=== PATIENT | male | born 2005 | race African-American/Black ===

== ENCOUNTER 2024-04-23 09:44 | Emergency (ER) | payer SELFPAY ==
--- NOTE | ~2024-04-23 | XR_ITS ---
EXAMINATION: XR chest 2V DATE: 04/23/2024 10:19 INDICATION: Chest pain TECHNIQUE: PA and lateral views of the chest were obtained. COMPARISON: None FINDINGS: Mild elevation the left hemidiaphragm. No airspace opacities, pulmonary edema, pleural effusion or pn eumothorax. The cardiomediastinal silhouette is normal. Visualized bones and soft tissues are unremar kable. IMPRESSION: 1. Mild elevation of the left hemidiaphragm. Otherwise normal chest radiograph. Reviewed, dictated and finalized at location A.
--- NOTE | 2024-04-23 09:47 | ECG_ITS ---
Test Date: 2024-04-23 09:53:15 Measurements Intervals [place] Rate: 71 P: -12 ID: [id number] QRS: 112 QRSD: 97 T: 150 QT: 369 QTc: 403 Interpretive Statements SINUS RHYTHM INCOMPLETE RIGHT BUNDLE BRANCH BLOCK LOW QRS VOLTAGE IN LIMB LEADS LEFT POSTERIOR FASCICULAR BLOCK BORDERLINE T WAVE ABNORMALITY- HIGH LATERAL LEADS ABNORMAL ECG No previous ECG available for comparison Electronically Signed On 04-23-2024 16:24:15 CDT by Garrett Lpóez D.O.
[2024-04-23 10:00] VITALS: BP 125/84; BP 125/93; PULSE 84; PULSE 90; RESP 14; RESP 16; TEMP 36.7; O2SAT 100
[2024-04-23 10:02] VITALS: BP 125/84; PULSE 72; RESP 14; O2SAT 100
--- NOTE | 2024-04-23 10:09 | ED.CHESTPAIN ---
HPI - Chest Pain General Chief Complaint: Chest Pain Stated Complaint: left chest pain Time Seen by Provider: 04/23/24 09:50 History of Present Illness HPI narrative: 19-year-old male no medical problems presents to the emergency room for evaluation of midsternal chest pain. States he woke up with the pain. Taking a deep breath and moving around exacerbates the pain. Denies any radiation. Denies any shortness of breath or difficulty breathing. Denies palpitations. States has had similar pain in the past, was told it was musculoskeletal. Related Data Home Medications Medication Instructions Recorded Confirmed No Home Medications 04/23/24 04/23/24 Allergies Allergy/AdvReac Type Severity Reaction Status Date / Time No Known Allergies Allergy Verified 04/23/24 09:45 Review of Systems Review of Systems: ROS unremarkable except for noted in HPI Exam Narrative: GENERAL: Well-appearing, well-nourished, no physical limitations, and in no acute distress. HEAD: Normocephalic, atraumatic. EYES: Conjunctivae normal, PERRLA and EOMI. CHEST: Clear to auscultation. No respiratory distress. No wheezes rales or rhonchi. No tenderness. HEART: Regular rate and rhythm. No murmur heard. Normal peripheral pulses. BACK: No CVA tenderness; No cervical/thoracic/lumbar tenderness, step-offs, bony abnormality; FROM EXTREMITIES: Normal range of motion. No edema. No clubbing or cyanosis SKIN: Warm, dry, no rash. No noted wounds NEURO: No focal deficits. Alert and oriented x3. MAEW. CN's II-XI intact bilaterally, normal gait PSYCH: Cooperative. Normal mood and affect. Course Vital Signs Vital signs: Vital Signs Temperature 36.7 C 04/23/24 10:00 Pulse Rate 90 04/23/24 10:00 Respiratory Rate 14 04/23/24 10:00 Blood Pressure 125/84 04/23/24 10:00 Pulse Oximetry 100 04/23/24 10:00 Oxygen Delivery Room Air 04/23/24 10:00 Temperature 36.7 C 04/23/24 10:00 Pulse Rate 90 04/23/24 10:00 Respiratory Rate 14 04/23/24 10:00 Blood Pressure 125/84 04/23/24 10:00 Pulse Oximetry 100 04/23/24 10:00 Oxygen Delivery Room Air 04/23/24 10:18 MDM - Chest Pain Lab Data 04/23/24 11:11 04/23/24 11:11 Labs: Lab Results 04/23/24 Range/Units 11:11 WBC 7.6 (4.5-10.0) K/mm3 RBC 5.38 (4.6-6.20) M/mm3 Hgb 16.7 (14.0-18.0) g/dL Hct 47.4 (42.0-52.0) % MCV 88.1 (80-100) fl MCH 31.0 (26-34) pg MCHC 35.2 (32-36) g/dl RDW 12.1 (11.5-14.5) % Plt Count 241 (150-375) k/mm3 MPV 8.3 (7.4-10.4) fl Immature Gran % (Auto) 0.3 (0-0.5) % Neut % (Auto) 62.1 (45.5-73.1) % Lymph % (Auto) 28.7 (18.3-44.2) % [place] % (Auto) 7.0 (2.6-8.5) % Eos % (Auto) 1.5 (0-4.4) % Baso % (Auto) 0.4 (0.2-1.2) % Lymph # (Auto) 2.17 (0.9-3.2) K/mm3 [place] # (Auto) 0.5 (0.1-0.6) K/mm3 Eos # (Auto) 0.1 (0-0.3) K/mm3 Baso # (Auto) 0.0 (0.0-0.1) K/mm3 Abs Immat Gran (auto) 0.02 (0.00-0.031) K/mm3 Absolute Neuts (auto) 4.7 (1.3-6.7) K/mm3 Absolute Nucleated RBC 0.000 (0.0-0.012) K/mm3 Nucleated RBC % 0.0 (0.0-0.2) % Sodium 139 (137-145) mmol/L Potassium 4.2 (3.4-5.0) mmol/L Chloride 100 (98-107) mmol/L Carbon Dioxide 31 H (22-30) mmol/L Anion Gap 8 (4-12) mmol/L BUN 12 (9-20) mg/dL Creatinine 1.10 (0.7-1.3) mg/dL Estim Creat Clear Calc 97 ml/min Estimated GFR > 60 (59 - ) Glucose 94 (65-110) mg/dL Calcium 9.1 (8.4-10.2) mg/dL Total Bilirubin 0.7 (0.2-1.3) mg/dL AST 31 (17-59) U/L ALT 33 (6-50) U/L Alkaline Phosphatase 86 (38-126) U/L Troponin I < 0.012 (0.000-0.034) ng/mL Total Protein 8.0 (6.3-8.2) g/dL Albumin 4.6 (3.5-5.1) g/dL Imaging Data Radiologist's impression: Impressions Chest X-Ray 04/23/24 10:44 IMPRESSION: 1. Mild elevation of the left hemidiaphragm. Otherwise normal chest radiograph. Discharge Plan Discharge Clinical Impres
[2024-04-23 11:20] LABS: Basophils Percent Auto 0.4 % (0.2-1.2); Eosinophils Absolute Auto 0.1 K/mm3 (0-0.3); Eosinophils Percent Auto 1.5 % (0-4.4); Hematocrit 47.4 % (42.0-52.0); Hemoglobin 16.7 g/dL (14.0-18.0); Immature Granulocyte Absolute 0.02 K/mm3 (0.00-0.031); Immature Granulocyte Percent A 0.3 % (0-0.5); Lymphocytes Absolute Auto 2.17 K/mm3 (0.9-3.2); Lymphocytes Percent Auto 28.7 % (18.3-44.2); Mean Corpuscular HGB Conc 35.2 g/dl (32-36); Mean Corpuscular Volume 88.1 fl (80-100); Mean Platelet Volume 8.3 fl (7.4-10.4); Monocytes Absolute Auto 0.5 K/mm3 (0.1-0.6); Neutrophils Absolute Auto 4.7 K/mm3 (1.3-6.7); Neutrophils Percent Auto 62.1 % (45.5-73.1); Platelet Count Result 241 k/mm3 (150-375); Red Blood Count 5.38 M/mm3 (4.6-6.20); Red Cell Distribution Width 12.1 % (11.5-14.5); White Blood Count 7.6 K/mm3 (4.5-10.0)
[2024-04-23 11:30] LABS: Alanine Aminotransferase 33 U/L (6-50); Albumin Level 4.6 g/dL (3.5-5.1); Alkaline Phosphatase 86 U/L (38-126); Anion Gap 8 mmol/L (4-12); Aspartate Amino Transferase 31 U/L (17-59); Bilirubin,Total 0.7 mg/dL (0.2-1.3); Blood Urea Nitrogen 12 mg/dL (9-20); Calcium 9.1 mg/dL (8.4-10.2); Carbon Dioxide 31 mmol/L (22-30); Chloride 100 mmol/L (98-107); Estimated CRCL calculation 97 ml/min; Estimated Glomerular Filt Rate > 60; Glucose 94 mg/dL (65-110); Potassium 4.2 mmol/L (3.4-5.0); Sodium 139 mmol/L (137-145)
[2024-04-23 11:42] LABS: Troponin I < 0.012 ng/mL (0.000-0.034)
[2024-04-23 11:46] VITALS: BP 143/80; PULSE 79; RESP 14; O2SAT 98
[2024-04-23 12:02] VITALS: PULSE 65; RESP 11; O2SAT 100
[2024-04-23 12:05] VITALS: BP 127/80; PULSE 74; RESP 16; O2SAT 98
== END 2024-04-23 12:05 | disposition home or self-care (01) ==
PROVIDERS: Emergency Provider Nurse Practitioner Family
DX: R07.89 Other chest pain (principal); I45.2 Bifascicular block
CPT/HCPCS: 36415; 71046; 80053; 84484; 85025; 93005; 99284

== ENCOUNTER 2024-12-06 15:53 | Emergency (ER) | payer OTHER, SELFPAY ==
--- NOTE | 2024-12-06 16:00 | ED.URI ---
HPI - URI/Sore Throat General Chief Complaint: Upper Respiratory Infection Stated Complaint: Sore Throat/Chills Time Seen by Provider: 12/06/24 15:56 Source: patient, RN notes reviewed and old records reviewed Mode of arrival: ambulatory Limitations: no limitations History of Present Illness HPI Narrative: Patient presents with complaints of flu-like symptoms for less than 24 hours. Symptoms include runny nose, sore throat, fever, body aches, headache, cough. He has been taking Mucinex for his symptoms with poor relief. He is not in any obvious distress Related Data Allergies Allergy/AdvReac Type Severity Reaction Status Date / Time No Known Allergies Allergy Verified 12/06/24 15:59 Review of Systems Review of Systems: All systems reviewed & are unremarkable except as noted in HPI and below Constitutional: Constitutional: Reports no additional constitutional complaints, Reports body ache(s), Reports chills, Reports fever(s), Reports headache(s) and Reports lethargy ENT: Reports system reviewed and no additional complaints, except as documented, Reports nasal congestion and Reports nasal discharge Cardiovascular: Cardiovascular: Reports no additional cardiovascular complaints Respiratory: Respiratory: Reports no additional respiratory complaints and Reports cough Gastrointestinal: Gastrointestinal: Reports no additional gastrointestinal complaints PMFSH Comments At the time of my signature, I reviewed and agree with the nursing past medical, surgical, social, and family history. There is no relevant family history pertinent to the patient complaint. Exam Const: General: cooperative, no acute distress, alert and awake Orientation/consciousness: oriented to person, oriented to place and oriented to time HENMT: Head: normal to inspection Mouth: Yes moist mucous membranes Resp: Effort & Inspection: normal respiratory effort and able to speak in complete sentences Auscultation: clear to auscultation bilaterally, no crackles, no rales, no rhonchi and no wheezes Cardio: Palpation: normal PMI Rate: regular rate Rhythm: regular rhythm Heart sounds: S1 normal heart sound present and S2 normal heart sound present Neuro: General: oriented to person, oriented to place and oriented to time Cranial nerves: Yes CN's II-XII intact bilaterally Psych: Appearance: grossly normal Thought process: Normal thought process present Insight: Good insight present (Psych) Judgement: Good judgement present (Psych) Course Course Level of Care: Express Care Visit Vital Signs Vital signs: Vital Signs Temperature 98.9 F 12/06/24 16:07 Pulse Rate 74 12/06/24 16:07 Respiratory Rate 16 12/06/24 16:07 Blood Pressure 147/93 H 12/06/24 16:07 Pulse Oximetry 100 12/06/24 16:07 Oxygen Delivery Room Air 12/06/24 16:07 Temperature 98.9 F 12/06/24 16:07 Pulse Rate 74 12/06/24 16:07 Respiratory Rate 16 12/06/24 16:07 Blood Pressure 147/93 H 12/06/24 16:07 Pulse Oximetry 100 12/06/24 16:07 Oxygen Delivery Room Air 12/06/24 16:07 Reviewed MDM - URI/Sore Throat MDM Narrative Medical decision making narrative: Negative flu, negative COVID, negative strep. Culture pending. Suspect that symptoms are actually due to influenza, symptoms present less than 24 hours. Start Tamiflu. Patient nontoxic appearing, stable for discharge home. Supportive care measures discussed. Discharge instructions reviewed with patient, as well as provided in writing per nursing staff. The instructions also include specific and strict return/GO TO THE ER as well as f/u information. All questions have been answered, and the patient deny any further questions with discharge and discharge plan. Some parts of this dictation were generated by voice recognition software and may contain typographical and/or grammatical inaccuracies. Differential Diagnosis Differential diagnosis: Likely upper respiratory infection, otitis media, viral infection, influenza and pharyngitis Medical Records Attestation: I reviewed the patient's medical records. Lab Data Attestation: I reviewed the patient's lab results. Labs: Lab Results 12/06/24 12/06/24 Range/Units 16:12 16:20 POC Influenza A Ag Negative (Negative) POC Influenza B Ag Negative (Negative) POC SARS CoV-2 Ag Negative (Negative) POC Grp A Strep Screen Negative (Negative) Discharge Plan Discharge Clinical Impression: Influenza, Elevated blood pressure reading Patient Disposition: Home, Self-Care Condition: Stable Instructions: Antibiotic Form, Influenza (ED) Additional Instructions: Take medications as prescribed. Follow with primary care provider. Emergency department for new or worse symptoms Patient Language: Malagasy Prescriptions: New oseltamivir [Tamiflu] 75 mg capsule 75 mg PO Q12H 5 Days Qty: 10 0RF Follow-up/Referrals: PHYSICIAN,PATTERN GRADER [Primary Care Provider] - Stand Alone Forms: Work/School Release IP Time of Disposition: 16:21
[2024-12-06 16:07] VITALS: BP 147/93; PULSE 74; RESP 16; TEMP 37.2; O2SAT 100
[2024-12-06 16:14] LABS: EDSTREPNEGPOS1 Negative (Negative)
[2024-12-06 16:22] LABS: EDCOVIDSCREEN Negative (Negative); EDINFLUASCREEN Negative (Negative); EDINFLUBSCREEN Negative (Negative)
== END 2024-12-06 16:25 | disposition home or self-care (01) ==
PROVIDERS: Emergency Provider Nurse Practitioner Family
DX: J11.1 Influenza due to unidentified influenza virus with other respiratory manifestations (principal); R03.0 Elevated blood-pressure reading, without diagnosis of hypertension; Z20.822 Contact with and (suspected) exposure to COVID-19
CPT/HCPCS: 87081; 87426; 87804; 87880; 99213; G0463

== ENCOUNTER 2025-02-19 10:15 | Emergency (ER) | payer OTHER, SELFPAY ==
--- NOTE | 2025-02-19 10:18 | ED_ITS ---
HPI - URI/Sore Throat General Chief Complaint: Ear Stated Complaint: headache/ear pain Time Seen by Provider: 02/19/25 10:17 Source: patient Mode of arrival: ambulatory Limitations: no limitations History of Present Illness HPI Narrative: Patient is a 20-year-old male who presents with left ear pain in left side headache. Patient seen by PCP 2 days ago for same symptoms and was told it was a malfunction with his CPAP machine. Patient also reports that he was told he needs is seen eye doctor as he may need glasses which are causing his headaches. Denies any fever, chills, nausea vomiting, diarrhea, vision loss. Related Data Allergies Allergy/AdvReac Type Severity Reaction Status Date / Time No Known Allergies Allergy Verified 02/19/25 10:24 Review of Systems Review of Systems: All systems reviewed & are unremarkable except as noted in HPI and below Constitutional: Constitutional: Denies chills, Denies fatigue, Denies fever(s), Reports headache(s), Denies malaise and Denies weakness Eyes: Eyes: Denies blurry vision, Denies itchy eyes and Denies loss of vision ENT: Reports otalgia, Reports headache(s), Denies nasal congestion, Denies sinus pain and Denies sore throat Cardiovascular: Cardiovascular: Denies chest pain, Denies irregular heart rhythm and Denies dyspnea Respiratory: Respiratory: Denies cough and Denies dyspnea Gastrointestinal: Gastrointestinal: Denies abdominal pain, Denies diarrhea, Denies nausea and Denies vomiting Musculoskeletal: Musculoskeletal: Denies back pain, Denies myalgias and Denies arthralgias Integumentary/Breasts: Skin/Breast: Denies pruritus and Denies rash Neurologic: Reports headache(s), Denies loss of vision and Denies weakness Psychiatric: Psychiatric: Reports no additional psychiatric complaints Endocrine: Endocrine: Denies fatigue Allergic/Immunologic: Allergic/Immunologic: Denies itchy eyes PMFSH Comments At time of signature, agree with nursing past medical, surgical, social and family history. There is no relevant family history pertinent to the presenting complaint. Exam Const: General: cooperative, healthy appearing, comfortable, no acute distress and well nourished Nutritional Appearance: well nourished Orientation/consciousness: patient oriented x3 Limitations: no limitations HENMT: Head: normal to inspection, normocephalic and atraumatic Ears: hearing grossly normal bilaterally, external ears normal, EAC's normal, no periauricular adenopathy and TM abnormal wth effusion serous on the left Face/Nose/Sinus: Normal external nose present, Normal nasal mucous membranes and turbinates present, normal facial exam, sinuses nontender and face symmetric Face and sinus: normal facial exam, sinuses nontender and face symmetric Mouth: Yes Normal oral and palatal mucosa present, Yes lip normal, Yes tongue normal, Yes Normal salivary glands and ducts present, Yes oropharynx normal and Yes moist mucous membranes Teeth and gingiva: dentition normal Throat: posterior oropharynx normal, tonsils normal and uvula midline Eyes: General: appearance normal, both eyes and all related structures Alignment and Position: alignment normal and position normal Periorbital: periorbital findings normal Eyelids: eyelids normal Pupils: Equal, round and reactive pupils present Neck: Neck: normal visual inspection, full ROM, no lymphadenopathy and supple Chest: Chest palpation & inspection: normal inspection of the chest and normal palpation of entire chest wall Resp: Effort & Inspection: normal respiratory effort and able to speak in complete sentences Auscultation: clear to auscultation bilaterally, no crackles, no rales, no rhonchi and no wheezes Cardio: Rate: regular rate Rhythm: regular rhythm Heart sounds: S1 normal heart sound present and S2 normal heart sound present GI: Inspection: normal to inspection Skin: General skin exam: normal color and no rashes or lesions noted Neuro: General: patient oriented x3 and moves all extremities Cranial nerves: Yes Equal, round and reactive pupils present Speech: normal speech Gait exam (Neuro): Normal gait present Extrem: General: normal to inspection, full ROM and no edema Psych: Appearance: grossly normal and well kempt Mental Status: mental status grossly normal Speech and movement: Normal speech and movement present Affect: normal affect Attitude: cooperative Thought process: Normal thought process present Course Course Emergency Course: Discharge instructions reviewed with patient, as well as provided in writing per nursing staff. The instructions also include specific and strict return/GO TO THE ER as well as f/u information. All questions have been answered, and the patient deny any further questions with discharge and discharge plan. Portions of this record may have been created with voice recognition software Level of Care: Express Care Visit Vital Signs Vital signs: Vital Signs Temperature 36.5 C 02/19/25 10:25 Pulse Rate 98 02/19/25 10:25 Respiratory Rate 20 05/16/25 10:25 Blood Pressure 139/80 02/19/25 10:25 Pulse Oximetry 99 02/19/25 10:25 Temperature 36.5 C 02/19/25 10:25 Pulse Rate 98 02/19/25 10:25 Respiratory Rate 20 02/19/25 10:25 Blood Pressure 139/80 02/19/25 10:25 Pulse Oximetry 99 02/19/25 10:25 Reviewed MDM - URI/Sore Throat MDM Narrative Medical decision making narrative: Pt well hydrated appearing, in no respiratory distress, hemodynamically stable. Recommend supportive care. The patient is stable at time of discharge the clinical impression was discussed and the patient was given the opportunity to ask questions, which were addressed as completely as possible given the information available at present. Anticipatory guidance and return to care precautions were discussed and the importance of primary care follow-up was stressed and encouraged. The patient voiced understanding of the plan, indications to return, and the need for follow-up. Exam findings show no acute concerns or changes Patient is appropriate for outpatient treatment and follow-up. Differential diagnosis considered: Stack virus, strep pharyngitis, allergic rhinitis, upper respiratory tract infection, sinusitis, rhinosinusitis, nasopharyngitis. viral pharyngitis, otitis media, otitis externa, otitis effusion, foreign body, cerumen impaction, viral syndrome, and influenza. Medical Records Attestation: I reviewed the patient's medical records. Discharge Plan Discharge Clinical Impression: Acute effusion of left ear Patient Disposition: Home Condition: Stable Instructions: Fluid In The Ear (Serous Otitis Media) (ED) Additional Instructions: Your symptoms are likely due to a viral illness, which is not treated with antibiotics. Viral symptoms can be present for up to a few weeks. -For pain, you may take: Tylenol 650-1000mg by mouth every 4-6 hours. Do not exceed 4000mg in 24 hours. Advil (Ibuprofen) 600 mg by mouth every 6 hours. Do not exceed 2400mg in 24 hours. 8 AM: Tylenol 11 AM: Ibuprofen 2 PM: Tylenol 5 PM: Ibuprofen 8 PM: Tylenol 11 PM: Ibuprofen 2 AM: Tylenol 5 AM: Ibuprofen -Antihistamine medication such as Benadryl/Zyrtec at night and Claritin/Monse during the day can help improve symptoms. -Use Flonase twice a day for 5 days then daily to help reduce the inflammation and dry up your sinuses. -You can also use Sudafed behind the pharmacy counter(12 or 24 hour). Be sure to drink plenty of water with these medications at least 8 ounces with every dose and it is important to drink 8 to 10 glasses of water per day. Water is a natural decongestant -Eat and drink things that are easy to swallow, like tea or soup, or popsicles. -Oral rinses such as: Salt water gargles and/or may use topical anesthetic (eg. Chloraseptic spray) or lozenges to relieve dryness or throat pain). -Frequent hand washing or hand hydraulic specialist is one of the best ways to prevent spread of infection. -Using a vaporizer or humidifier at night will also help thin secretions and help with coughing up phlegm. Call your Primary Care Doctor and make a follow-up appointment in 3 days. If your cough worsens, you develop a fever greater than 103, you develop shaking chills, a fast heartbeat, trouble breathing and/or feel you are are breathing much faster than usual, call your Primary Care Doctor or go to the ER. Patient Language: Hungarian Prescriptions: New fluticasone propionate [Flonase Allergy Relief] 50 mcg/actuation spray,suspension 1 spray intranasal DAILY Qty: 16 0RF Rx Instructions: administer into each nostril Follow-up/Referrals: Venkat,Paulette Hwang DO [Primary Care Provider] - 3 Days Stand Alone Forms: Work/School Release IP Time of Disposition: 10:58
[2025-02-19 10:25] VITALS: BP 139/80; PULSE 98; RESP 20; TEMP 36.5; O2SAT 99
== END 2025-02-19 11:04 | disposition home or self-care (01) ==
PROVIDERS: Emergency Provider Nurse Practitioner Family; PCP Family Medicine
DX: H65.02 Acute serous otitis media, left ear (principal); G47.30 Sleep apnea, unspecified
CPT/HCPCS: 99213; G0463

== ENCOUNTER 2025-03-15 06:29 | Emergency (ER) | payer OTHER, SELFPAY ==
--- OUTSIDE RECORDS SUMMARY | 2025-03-15 06:31 | XMS_ITS | Referral Summary ---
Author Organization [facility] Address [address] [place] [address] Care Team Providers Care Track And Field Coach Name Role Phone Paulette Robledo DO Primary Care Provider [phone]- [phone] Encounters Date Type Department Care Team Description 03/05/2025 3:08 AM CDT - 03/05/2025 4:55 AM CDT Emergency [facility] Emergency Department [address] [place] [address] Sunny Girard, Acute nonintractable headache, unspecified headache type (Primary Dx) Discharge Disposition: Discharge to home or self care 02/19/2025 Results Follow-Up [facility] Family Medicine at [facility] [address] [place] [address] Paulette Robledo, DO CBC with auto differential, Comprehensive metabolic panel, Hemoglobin A1c, Additional followed-up results: 8 02/19/2025 Telephone [facility] Family Medicine at [facility] [address] [place] [address] Paulette Robledo, DO Medical Question/Miscellaneou s 02/18/2025 Telephone [facility] [place] [address] [address] Alvarez Powers MD Orders Only 02/18/2025 8:30 AM CDT Office Visit [facility] [place] [address] [place] [address] Zoe Orozco NP ZOYA (obstructive sleep apnea) 02/17/2025 2:15 PM CDT Office Visit [facility] Family Medicine at [facility] [address] [facility] [address] [place] [address] Paulette Robledo DO Acute nonintractable headache, unspecified headache type (Primary Dx) 02/04/2025 8:00 AM CDT Office Visit [facility] Family Medicine at [facility] [address] [facility] [facility] [address] [place] [address] Paulette Robledo DO Annual physical exam (Primary Dx); ZOYA (obstructive sleep apnea); Class 2 obesity due to excess calories without serious comorbidity with body mass index (BMI) of 38.0 to 38.9 in adult; Screening for deficiency anemia; Encounter for screening for other digestive system disorders; Encounter for screening examination for impaired glucose regulation and diabetes mellitus; Encounter for lipid screening for cardiovascular disease; Screening for thyroid disorder; Screening for blood or protein in urine; Need for hepatitis C screening test; Need for hepatitis B screening test from Last 3 Months Allergies Active Allergy Reactions Criticality Noted Date Comments Tree Pollen-[place], Red Itching Low 06/11/2022 Medications ibuprofen (ADVIL,MOTRIN) 800 mg tabletIndications: Acute nonintractable headache, unspecified headache type Take 1 tablet (800 mg total) by mouth every 8 (eight) hours as needed for pain or headaches (pain) 90 tablet 2 Active Active Problems Problem Noted Date Diagnosed Date Class 2 obesity due to exces s calories without serious comorbidity with body mass index (BMI) of 38.0 to 38.9 in adult 02/04/2025 History of appendectomy 11/28/2016 Attention deficit disorder of adult with hyperac tivity 01/19/2014 Disorder of eustachian tube 09/07/2013 ZOYA (obstructive sleep apnea) 09/07/2013 Assessment & Plan (02/18/2025 9:06 AM CDT): The patient continue to wear CPAP 20 cm water pressure while sleeping. I did send an order to [facility] to show the patient variety of mask. The patient is aware that he does have a higher likelihood of heart attacks, strokes, irregular heartbeats and possible without wearing CPAP. Assessment & Plan (03/18/2023 11:48 AM CDT): The patient was diagnosed with obstructive sleep apnea at age 9. He is still snoring and having apneic episodes and is not on any CPAP/BiPAP therapy. I have recommended proceeding with a nocturnal polysomnogram with a split night protocol if necessary and no MSLT. He will follow up here in 3 months. Resolved Problems Problem Noted Date Diagnosed Date Resolved Date Disturbance in sleep behavior 09/07/2013 02/04/2025 Snoring 09/07/2013 02/04/2025 Nasal congestion 09/07/2013 02/04/2025 Immunizations Immunization Administration Dates Next Due Influenza, Unspecified 02/04/2025(Deferred: Carmen ent Refused) Social History Tobacco Use Types Packs/Day Years Used Date Smoking Tobacco: Never Smokeless Tobacco: Never Tobacco Cessation:Counseling Given: Not Answered Alcohol Use Standard Drinks/Week Comments Not Currently 0 (1 standard drink = 0.6 oz pur e alcohol) AUDIT-C Answer Date Recorded Q1: How often do you have a drink containing alcohol? Never 02/17/2025 Q2: How many drinks containi ng alcohol do you have on a typical day when you are drinking? Patient does not drink Q3: How often do you have si x or more drinks on one occasion? Never 02/17/2025 PHQ-2 Answer Date Recorded PHQ-2 Total Score 0 02/04/2025 Personal Safety Answer Date Recorded Have you ever been in or are you currently in a harmful physical or emotional relationship or is someone making you feel afraid or unsafe? 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 Gender Identity Not on file Sexual Orientation Not on file Last Filed Vital Signs Vital Sign Reading Time Taken Comments Blood Pressure 160/98 03/05/2025 4:05 AM CDT Pulse 98 03/05/2025 4:05 AM CDT Temperature 36.2 C (97.2 F) 03/05/2025 2:44 AM CDT Respiratory Rate 16 03/05/2025 4:05 AM CDT Oxygen Saturation 98% 03/05/2025 4:05 AM CDT Inhaled Oxygen Concentration - - Weight 124.7 kg (274 lb 14.6 oz) 03/05/2025 2:44 AM CDT Height 177.8 cm (5' 10) 02/18/2025 8:26 AM CDT Body Mass Index 39.45 02/18/2025 8:26 AM CDT Plan of Treatment Not on file Procedures Procedure Name Priority Date/Time Associated Diagnosis Comments CT HEAD WO CONTRAST ED 03/05/2025 4 :03 AM CDT THYROID FUNCTION CASCADE Routine 02/11/2025 1:10 PM CDT Annual physical exam Screening for thyroid disorder LIPID PANEL Routine 02/11/2025 1:10 PM CDT Annual physical exam Encounter for lipid screening for cardiovascular disease HEMOGLOBIN A1C Routine 02/11/2025 1:10 PM CDT Annual physical exam Encounter for screening examination for impaired glucose regulation and diabetes mellitus COMPREHENSIVE METABOLIC PANEL Routine 02/11/2025 1:10 PM CDT Annual physical exam Encounter for screening for other digestive system disorders CBC WITH AUTO DIFFERENTIAL Routine 02/11/2025 1:10 PM CDT Annual physical exam Screening for deficiency anemia URINE CULTURE Routine 02/11/2025 1:10 PM CDT HEPATITIS B CORE ANTIBODY, TOTAL Routine 02/11/2025 1:10 PM CDT Need for hepatitis B screening test HEPATITIS B SURFACE ANTIBODY (IMMUNE STATUS) Routine 02/11/2025 1:10 PM CDT Need for hepatitis B screening test HEPATITIS B SURFACE ANTIGEN Routine 02/11/2025 1:10 PM CDT Need for hepatitis B screening test HEPATITIS C ANTIBODY Routine 02/11/2025 1:10 PM CDT Need for hepatitis C screening test URINALYSIS AND REFLEX TO MICROSCOPIC AND CULTURE Routine 02/11/2025 1:10 PM CDT Annual physical exam Screening for blood or protein in urine from Last 3 Months Results * CT Head WO Contrast (03/05/2025 4:03 AM CDT) Anatomical Region Laterality Modality Head and Neck N/A Computed Tomogra phy 03/05/2025 4:39 AM CDT Narrative 03/05/2025 4:40 AM CDT EXAM DESCRIPTION: CT HEAD WO CONTRAST REASON FOR STUDY: Headache, increasing frequency or severity Patient reports left sided [place]. States he has a hx of migraines but they were previously on the right side. Patient reports s/s began x2 days ago and have been on and off. Patient took either ibuprofen or tylenol without relief. TECHNIQUE: Axial images acquired through the brain without intravenous contrast. Coronal and sagittal reformats were performed. Images stored on PACS. Automated mA/kV exposure control was used as a dose optimization technique for this examination and patient examination was performed in strict accordance with principles of ALARA. COMPARISON: None. FINDINGS: BRAIN: No hemorrhage, edema or mass effect. No recent infarct. Normal white matter. EXTRA-AXIAL SPACES: No fluid collections. No masses. CALVARIUM: No fracture. SINUSES/MASTOIDS: No fluid or mucosal thickening. ORBITS: No significant abnormality. OTHER: No other significant abnormality. IMPRESSION: No acute intracranial abnormality. THIS IS AN ELECTRONICALLY VERIFIED FINAL REPORT 03/05/2025 4:40 AM - Electronically signed by Dina Heath M.D. SN: Report ID: [id number] Reading Location: [id number] Procedure Note Dina Heath MD - 03/05/2025 EXAM DESCRIPTION: CT HEAD WO CONTRAST REASON FOR STUDY: Headache, increasing frequency or severity Patient reports left sided BLACKWOOD. States he has a hx of migraines but theywere previously on the right side. Patient reports s/s began x2 days ago andhave been on and off. Patient took either ibuprofen or tylenol without relief. TECHNIQUE: Axial images acquired through the brain without intravenous contrast. Coronal and sagittal reformats were performed. Images storedon PACS. Automated mA/kV exposure control was used as a dose optimization technique for this examination and patient examination was performed instrict accordance with principles of ALARA. COMPARISON: None. FINDINGS: BRAIN: No hemorrhage, edema or mass effect. No recent infarct. Normal white matter. EXTRA-AXIAL SPACES: No fluid collections. No masses. CALVARIUM: No fracture. SINUSES/MASTOIDS: No fluid or mucosal thickening. ORBITS: No significant abnormality. OTHER: No other significant abnormality. IMPRESSION: No acute intracranial abnormality. THIS IS AN ELECTRONICALLY VERIFIED FINAL REPORT 03/05/2025 4:40 AM - Electronically signed by Dina Heath M.D. SN: SN Report ID: [id number] Reading Location: [place] [address] Sunny Girard DO IMG [address] PROCEDURES Final Res ult * Thyroid Function [place] (02/11/2025 1:10 PM CDT) Pathologist [facility] TSH 1.09 0.40 - 4.50 mIU/L [facility] Blood 02/11/2025 1:10 PM CDT 02/11/2025 1:11 PM CDT Narrative [facility] - 02/12/2025 9:45 PM CDT FASTING:NO FASTING: NO Paulette Robledo DO LAB BLOOD ORDERABLES Final Result [facility] [address] [place] [address] * Urinalysis reflex to microscopic and culture Urine, clean voided (02/11/2025 1:10 PM CDT) Color, ur TNP [facility] Comment: TEST NOT PERFORMED The specimen exceeds stability for the test requested. Urine, clean voided 02/11/2025 1:10 PM CDT 02/11/2025 1:11 PM CDT Narrative [facility] - 02/12/2025 9:45 PM CDT FASTING:NO FASTING: NO Paulette Robledo DO LAB MICROBIOLOGY - GENERAL ORDERABLES Final Result [facility] [address] [place] [address] * CBC with auto differential (02/11/2025 1:10 PM CDT) WBC 6.4 3.8 - 10.8 Thousand/u L [facility] [facility] RBC, POC 5.37 4.20 - 5.80 Million/uL [employer] Hgb 16.4 13.2 - 17.1 g/dL [employer] Hct 48.5 38.5 - 50.0 % [employer] MCV 90.3 80.0 - 100.0 fL [employer] MCH 30.5 27.0 - 33.0 pg [employer] [facility] MCHC 33.8 32.0 - 36.0 g/dL [facility] Comment: For adults, a slight decrease in the calculated MCHC value (in the range of 30 to 32 g/dL) is most likely not clinically significant; however, it should be interpreted with caution in correlation with other red cell parameters and the patient's clinical condition. Rdw 13.2 11.0 - 15.0 % [employer] Platelets 309 140 - 400 Thousand/u L [employer] MPV 8.7 7.5 - 12.5 fL [employer] Neutrophils, abs 3,571 1,500 - 7,800 cells/uL [employer] Lymphocytes, abs 2,138 850 - 3,900 cells/uL [employer] Monocyte abs 544 200 - 950 cells/uL [employer] [facility] Eosinophils, abs 109 15 - 500 cells/uL [employer] [facility] Basophils, abs 38 0 - 200 cells/uL [employer] [facility] Neutrophils 55.8 % [facility] Lymphocyte pct 33.4 % [facility] Monocytes 8.5 % [facility] Eosinophils 1.7 % [facility] Basophils 0.6 % [facility] Blood 02/11/2025 1:10 PM CDT 02/11/2025 1:11 PM CDT Narrative [facility] - 02/12/2025 9:45 PM CDT FASTING:NO FASTING: NO Paulette Robledo DO LAB BLOOD ORDERABLES Final Result Performing Organization Address City/[facility]/ZIP Co de Phone Number [facility] [address] [place] [address] * Hepatitis C antibody Blood (02/11/2025 1:10 PM CDT) Hep C Ab NON-REACTI VE NON-REACT KATERYNA [facility] Comment: HCV antibody was non-reactive. There is no laboratory evidence of HCV infection. In most cases, no further action is required. However, if recent HCV exposure is suspected, a test for HCV RNA (test code 82376) is suggested. For additional information please refer to http://Mortar Data.Lumiary/faq/MDO71z3 (This link is being provided for informational/ educational purposes only.) Blood 02/11/2025 1:10 PM CDT 02/11/2025 1:11 PM CDT Narrative [facility] - 02/12/2025 9:45 PM CDT FASTING:NO FASTING: NO Paulette Robledo DO LAB MICROBIOLOGY - GENERAL ORDERABLES Final Result Performing Organization Address City/[facility]/ZIP Co de Phone Number [facility] [address] [place] [address] * Hepatitis B core antibody, total Blood (02/11/2025 1:10 PM CDT) Hep B core IgG/IgM NON-REACTI VE NON-REACTI VE [facility] Comment: For additional information, please refer to http://Mortar Data.Lumiary/faq/YVR721 (This link is being provided for informational/ educational purposes only.) Blood 02/11/2025 1:10 PM CDT 02/11/2025 1:11 PM CDT Narrative [facility] - 02/12/2025 9:45 PM CDT FASTING:NO FASTING: NO us Paulette Robledo DO LAB MICROBIOLOGY - GENERAL ORDERABLES Final Result Performing Organization Address [facility]/ZIP Co de Phone Number [facility] [address] [place] [address] * Hepatitis B surface antibody (immune status) Blood (02/11/2025 1:10 PM CDT) HBsAb (immune status) NON-REACTI VE NON-REACTI VE [facility] Blood 02/11/2025 1:10 PM CDT 02/11/2025 1:11 PM CDT Narrative [facility] - 02/12/2025 9:45 PM CDT FASTING:NO FASTING: NO Paulette Robledo DO LAB MICROBIOLOGY - GENERAL ORDERABLES Final Result Performing Organization Address [facility] de Phone Number [facility] [address] [place] [address] * Hepatitis B Surface Antigen Blood (02/11/2025 1:10 PM CDT) HepBsAg NON-REACTI VE NON-REACTI VE [facility] Comment: For additional information, please refer to http://education.Lumiary/faq/CQJ340 (This link is being provided for informational/ educational purposes only.) Blood 02/11/2025 1:10 PM CDT 02/11/2025 1:11 PM CDT Narrative [facility] - 02/12/2025 9:45 PM CDT FASTING:NO FASTING: NO us Paulette Robledo DO LAB MICROBIOLOGY - GENERAL ORDERABLES Final Result Performing Organization Address [facility] Co de Phone Number [facility] [address] [place] [address] * Urine culture (02/11/2025 1:10 PM CDT) Urine culture [facility] [employer] [facility] Comment: CULTURE, URINE, ROUTINE Micro Number: [id number] Test Status: Final Specimen Source: Urine Specimen Quality: Adequate Result: No Growth We received a preserved urine culture transport tube with either no order indicated or a source which is inappropriate for the test requested. A urine culture was performed. If this is not what you intended to order, please contact your local client services analyst immediately so that we can adjust our billing appropriately. You may also inquire about alternative or additional testing. 02/11/2025 1:10 PM CDT 02/11/2025 1:11 PM CDT [facility] - 02/12/2025 9:45 PM CDT FASTING:NO FASTING: NO us Paulette Robledo DO LAB MICROBIOLOGY - GENERAL ORDERABLES Final Result [facility] [address] [place] [address] * (ABNORMAL) Hemoglobin A1c (02/11/2025 1:10 PM CDT) Hgb A1C 5.7(H) <5.7 % of total Hgb [facility] Comment: For someone without known diabetes, a hemoglobin A1c value between 5.7% and 6.4% is consistent with prediabetes and should be confirmed with a follow-up test. For someone with known diabetes, a value <7% indicates that their diabetes is well controlled. A1c targets should be individualized based on duration of diabetes, age, comorbid conditions, and other considerations. This assay result is consistent with an increased risk of diabetes. Currently, no consensus exists regarding use of hemoglobin A1c for diagnosis of diabetes for children. Blood 02/11/2025 1:10 PM CDT 02/11/2025 1:11 PM CDT Narrative [facility] - 02/12/2025 9:45 PM CDT FASTING:NO FASTING: NO Paulette Robledo DO LAB BLOOD ORDERABLES Final Result Performing Organization Address [facility]/ZIP Co de Phone Number [facility] [address] [place] [address] * Lipid panel (02/11/2025 1:10 PM CDT) Cholesterol 141 <200 mg/dL [facility] HDL 42 > OR = 40 mg/dL [facility] Triglycerides 140 <150 mg/dL [facility] LDL 77 mg/dL (calc) [facility] [employer] [facility] Comment: Reference range: <100 Desirable range <100 mg/dL for primary prevention; <70 mg/dL for patients with CHD or diabetic patients with > or = 2 CHD risk factors. LDL-C is now calculated using the Florencia calculation, which is a validated novel method providing better accuracy than the Friedewald equation in the estimation of LDL-C. Armando CHATMAN et al. YFN. 2013;310(19): 3801-5556 (http://education.Telogis/faq/LVS861) Chol/HDL ratio 3.4 <5.0 (calc) [facility] Non-HDL, (LDL+VLDL) 99 <130 mg/dL (calc) [facility] Comment: For patients with diabetes plus 1 major ASCVD risk factor, treating to a non-HDL-C goal of <100 mg/dL (LDL-C of <70 mg/dL) is considered a therapeutic option. Blood 02/11/2025 1:10 PM CDT 02/11/2025 1:11 PM CDT Narrative [facility] - 02/12/2025 9:45 PM CDT FASTING:NO FASTING: NO Pualette Robledo DO LAB BLOOD ORDERABLES Final Result Performing Organization Address [facility] Co de Phone Number [facility] [address] [place] [address] * Comprehensive metabolic panel (02/11/2025 1:10 PM CDT) Glucose 89 65 - 139 mg/dL [facility] Comment: Non-fasting reference interval BUN 12 7 - 25 mg/dL [facility] Creatinine 1.01 0.60 - 1.24 mg/dL [facility] eGFR 108 > OR = 60 mL/min/1.7 3m2 [facility] BUN/creat ratio SEE NOTE: 6 - 22 (calc) [facility] Comment: Not Reported: BUN and Creatinine are within reference range. Sodium 139 135 - 146 mmol/L [facility] Potassium, pl 4.3 3.5 - 5.3 mmol/L [facility] Chloride 105 98 - 110 mmol/L [facility] CO2 29 20 - 32 mmol/L [facility] Calcium 9.5 8.6 - 10.3 mg/dL [facility] Protein, sr 6.8 6.1 - 8.1 g/dL [facility] Albumin 4.4 3.6 - 5.1 g/dL [facility] GLOBULIN 2.4 1.9 - 3.7 g/dL (calc) [facility] Alb/glob ratio 1.8 1.0 - 2.5 (calc) [facility] Bilirubin, total 0.5 0.2 - 1.2 mg/dL [facility] Alk phos 82 36 - 130 U/L [facility] AST 22 10 - 40 U/L [facility] ALT (SGPT) 23 9 - 46 U/L [facility] Blood 02/11/2025 1:10 PM CDT 02/11/2025 1:11 PM CDT Narrative [facility] - 02/12/2025 9:45 PM CDT FASTING:NO FASTING: NO us Paulette Robledo DO LAB BLOOD ORDERABLES Final Result [facility] [address] [place] [address] from Last 3 Months Insurance [employer] [facility] CLAIMS Care Teams Track And Field Coach Relationship Specialty Start Date End Date Paulette Robledo DO [address] [place] [address] PCP - General Family Medicine 02/04/25
--- OUTSIDE RECORDS SUMMARY | 2025-03-15 06:31 | XMS_ITS | Clinical Summary ---
Author Organization [facility] Address [address] [place] [address] Care Team Providers Care Director Of Regulatory Affairs Name Role Phone Paulette Robledo Primary Care Provider [phone]- [phone] Allergies Active Allergy Reactions Criticality Noted Date Comments Tree Pollen[place], Red Itching Low 06/11/2022 Medications ibuprofen (ADVIL,MOTRIN) 800 mg tabletIndications: Acute nonintractable headache, unspecified headache type Take 1 tablet (800 mg total) by mouth every 8 (eight) hours as needed for pain or headaches (pain) 90 tablet 2 5 Active Active Problems Problem Noted Date Diagnosed [...] Snoring 09/07/2013 02/04/2025 Nasal congestion 09/07/2013 02/04/2025 Encounters Date Type Department Care Team Description 03/05/2025 3:08 AM CDT - 03/05/2025 4:55 AM CDT Emergency [facility] Emergency Department [facility] [place] [address] Sunny Girard, Acute nonintractable headache, unspecified headache type (Primary Dx) Discharge Disposition: Discharge to home or self care 02/19/2025 Results Follow-Up [facility] Family Medicine at [address] [phone] Paulette Robledo, DO CBC with auto differential, Comprehensive metabolic panel, Hemoglobin A1c, Additional followed-up results: 8 02/19/2025 Telephone [facility] Family Medicine [address] [phone] Paulette Robledo, DO Medical Question/Miscellaneou s 02/18/2025 8:30 AM CDT Office Visit [facility] Pulmonary [address] [address] Zoe Orozco NP ZOYA (obstructive sleep apnea) 02/18/[address] [address] Alvarez Powers MD Orders Only 02/17/2025 2:15 PM CDT Office Visit [facility] Family Medicine [address] [address] Paulette Robledo, DO Acute nonintractable headache, unspecified headache type (Primary Dx) 02/04/2025 8:00 AM CDT Office Visit [facility] Family Medicine at [place] [address] [facility] [address] [place] [address] Paulette Robledo DO Annual physical exam (Primary [...] B screening test from Last 3 Months Immunizations Immunization Administration Dates Next Due Influenza, Unspecified 02/04/2025(Deferred: Carmen ent Refused) Surgical History Surgery Date Site/Laterality Comments TYMPANOSTOMY TUBE PLACEMENT Ear Pressure Equalization Tube, Insertion, Bilaterally - '04, '05, '06 at [facility] (Added by [place] TONSILLECTOMY PRIMARY/SECONDARY <AGE 12 Tonsillectomy - with Adnoid revision '07 at OSH (Added by TW Conv) [place] LAPAROSCOPIC APPENDECTOMY Laparoscopic Appendectomy - (Added by TW Conv) TONSILLECTOMY AND ADENOIDECTOMY Medical History Medical History Date Comments Sleep difficulties Family History Medical History Relation Name Comments Sleep apnea Father Diabetes type II Mother Cancer Paternal Grandmother Relation Name Status Comments Father Alive Mother Alive Paternal Grandmother Social History Tobacco Use Types Packs/Day Years [...] on file 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 Gender Identity Not on file Sexual Orientation Not on file Obstetrics History Last Filed Vital Signs Vital Sign Reading [...] 02/18/2025 8:26 AM CDT Plan of Treatment Health Maintenance Due Date Last Done Comments Covid-19 Vaccine (2 - 2023-2 5 season) 2026 11/09/2021 Postponed from 06/07 (Patient declined, but will receive in the future) Depression Screening 02/04/2026 02/04/2025 HPV Vaccines (1 - Male 3-dos e series) 02/04/2026 Postponed from 01/04 (Patient declined, but will receive in the future) Regular Well Visit/Exam 18-64 02/04/2026 02/04/2025 DTaP/Tdap/Td Vaccine (1 - Tdap) 02/04/2027 Postponed from 2014 (Insurance / Financial) Hepatitis B Screening Completed 02/11/2025 Hepatitis C Screening Completed 02/11/2025 Influenza Vaccine Discontinued Meningococcal B Vaccine Discontinued Pneumococcal vaccine <65 Aged Out No longer eligible based on patient's age to complete this topic Varicella Vaccines Discontinued Procedures Procedure Name Priority Date/Time Associated Diagnosis [...] and Neck N/A Computed Tomogra phy 03/05/2025 4:3 9 AM CDT Narrative 03/05/2025 4:40 AM CDT [...] Dina Heath M.D. SN: SN Report ID: [id number] [place] Location: [id number] Procedure Note Dina Heath MD - 03/05/2025 [...] Dina Heath M.D. SN: SN Report ID: [id number] [place] Location: [place] [address] Sunny Girard DO IMG CT PROCEDURES Final Res ult * Thyroid Function [place] (02/11/2025 1:10 PM CDT) [facility] TSH 1.09 0.40 - 4.50 mIU/L [facility] Blood 02/11/2025 1:10 PM CDT 02/11/2025 1:11 PM CDT Narrative [facility] - 02/12/2025 9:45 PM CDT FASTING:NO FASTING: NO Paulette Robledo DO LAB BLOOD ORDERABLES Final Result Performing Organization Address [facility] de Phone Number [facility] [address] [place] [address] * Urinalysis reflex to microscopic and culture Urine, clean voided (02/11/2025 1:10 PM CDT) [facility] Color, ur TNP [facility] Comment: TEST NOT PERFORMED The specimen exceeds stability for the test requested. Urine, clean voided 02/11/2025 1:10 PM CDT 02/11/2025 1:11 PM CDT Narrative [facility] - 02/12/2025 9:45 PM CDT FASTING:NO FASTING: NO Paulette Robledo DO LAB MICROBIOLOGY - GENERAL ORDERABLES Final Result Performing Organization Address [facility] Co de Phone Number [facility] [address] [place] [address] * CBC with auto differential (02/11/2025 1:10 PM CDT) [facility] WBC 6.4 3.8 - 10.8 Thousand/u L [facility] RBC, POC 5.37 4.20 - 5.80 Million/uL [facility] Hgb 16.4 13.2 - 17.1 g/dL [facility] Hct 48.5 38.5 - 50.0 % [facility] MCV 90.3 80.0 - 100.0 fL [facility] MCH 30.5 27.0 - 33.0 pg [facility] MCHC 33.8 32.0 - 36.0 g/dL [facility] Comment: For adults, a slight decrease in the calculated MCHC value (in the range of 30 to 32 g/dL) is most likely not clinically significant; however, it should be interpreted with caution in correlation with other red cell parameters and the patient's clinical condition. Rdw 13.2 11.0 - 15.0 % [facility] Platelets 309 140 - 400 Thousand/u L [facility] MPV 8.7 7.5 - 12.5 fL [facility] Neutrophils, abs 3,571 1,500 - 7,800 cells/uL [facility] Lymphocytes, abs 2,138 850 - 3,900 cells/uL [facility] Monocyte abs 544 200 - 950 cells/uL [facility] Eosinophils, abs 109 15 - 500 cells/uL [facility] Basophils, abs 38 0 - 200 cells/uL [facility] Neutrophils 55.8 % [facility] Lymphocyte pct 33.4 % [facility] Monocytes 8.5 % [facility] Eosinophils 1.7 % [facility] Basophils 0.6 % [facility] Blood 02/11/2025 1:10 PM CDT 02/11/2025 1:11 PM CDT Narrative [facility] - 02/12/2025 9:45 PM CDT FASTING:NO FASTING: NO Paulette Robledo DO LAB BLOOD ORDERABLES Final Result [facility] [address] [place] [address] * Hepatitis C antibody Blood (02/11/2025 1:10 PM CDT) Hep C Ab NON-REACTI VE NON-REACT KATERYNA [facility] Comment: HCV antibody was non-reactive. There is no laboratory evidence of HCV infection. In most cases, no further action is required. However, if recent HCV exposure is suspected, a test for HCV RNA (test code 35210) is suggested. For additional information please refer to http://[employer].[facility]/faq/AZA20r2 (This link is being provided for informational/ educational purposes only.) Blood 02/11/2025 1:10 PM CDT 02/11/2025 1:11 PM CDT Narrative [facility] - 02/12/2025 9:45 PM CDT FASTING:NO FASTING: NO Paulette Robledo LAB MICROBIOLOGY - GENERAL ORDERABLES Final Result Performing Organization Address [facility] de Phone Number [facility] [address] [place] [address] * Hepatitis B core antibody, total Blood (02/11/2025 1:10 PM CDT) Pathologist [facility] Hep B core IgG/IgM NON-REACTI VE NON-REACTI VE [facility] Comment: For additional information, please refer to http://[employer].[facility]/faq/AIB842 (This link is being provided for informational/ educational purposes only.) Blood 02/11/2025 1:10 PM CDT 02/11/2025 1:11 PM CDT Narrative [facility] - 02/12/2025 9:45 PM CDT FASTING:NO FASTING: NO Paulette Robledo LAB MICROBIOLOGY - GENERAL ORDERABLES Final Result Performing Organization Address [facility] de Phone Number [facility] [address] [place] [address] * Hepatitis B surface antibody (immune status) Blood (02/11/2025 1:10 PM CDT) Pathologist [facility] HBsAb (immune status) NON-REACTI VE NON-REACTI VE [facility] Blood 02/11/2025 1:10 PM CDT 02/11/2025 1:11 PM CDT Narrative [facility] - 02/12/2025 9:45 PM CDT FASTING:NO FASTING: NO Paulette Iraheta Robledo DO LAB MICROBIOLOGY - GENERAL ORDERABLES Final Result Performing Organization Address [facility] de Phone Number [facility] [address] [place] [address] * Hepatitis B Surface Antigen Blood (02/11/2025 1:10 PM CDT) HepBsAg NON-REACTI VE NON-REACTI VE [facility] Comment: For additional information, please refer to http://[employer].[facility]/faq/VNQ589 (This link is being provided for informational/ educational purposes only.) Blood 02/11/2025 1:10 PM CDT 02/11/2025 1:11 PM CDT Narrative [facility] - 02/12/2025 9:45 PM CDT FASTING:NO FASTING: NO Paulette Iraheta Venkat DO LAB MICROBIOLOGY - GENERAL ORDERABLES Final Result Performing Organization Address [facility] Phone Number [facility] [address] [place] [address] * Urine culture (02/11/2025 1:10 PM CDT) Urine culture [facility] Comment: CULTURE, URINE, ROUTINE Micro Number: [id number] Test Status: Final Specimen Source: Urine Specimen Quality: Adequate Result: No Growth We received a preserved urine culture transport tube with either no order indicated or a source which is inappropriate for the test requested. A urine culture was performed. If this is not what you intended to order, please contact your local client support administrator immediately so that we can adjust our billing appropriately. You may also inquire about alternative or additional testing. 02/11/2025 1:10 PM CDT 02/11/2025 1:11 PM CDT Narrative [facility] - 02/12/2025 9:45 PM CDT FASTING:NO FASTING: NO us Paulette Robledo DO LAB MICROBIOLOGY - GENERAL ORDERABLES Final Result Performing Organization Address [facility] de Phone Number [facility] [address] [place] [address] * (ABNORMAL) Hemoglobin A1c (02/11/2025 1:10 PM CDT) Hgb A1C 5.7(H) <5.7 % of total Hgb [facility] Comment: For someone without known diabetes, [...] BLOOD ORDERABLES Final Result Performing Organization Address [facility] de Phone Number [facility] [address] [place] [address] * Lipid panel (02/11/2025 1:10 PM CDT) Cholesterol 141 <200 mg/dL [facility] HDL 42 > OR = 40 mg/dL [facility] Triglycerides 140 <150 mg/dL [facility] LDL 77 mg/dL (calc) [facility] Comment: Reference range: <100 Desirable range <100 mg/dL for primary prevention; <70 mg/dL for patients with CHD or diabetic patients with > or = 2 CHD risk factors. LDL-C is now calculated using the Florencia calculation, which is a validated novel method providing better accuracy than the Friedewald equation in the estimation of LDL-C. Armando CHATMAN et al. YFN. 2013;310(19): 8816-5112 (http://education.Evomail/faq/YTD441) Chol/HDL ratio 3.4 <5.0 (calc) [facility] Non-HDL, (LDL+VLDL) 99 <130 mg/dL (calc) [facility] Comment: For patients with diabetes plus 1 major ASCVD risk factor, treating to a non-HDL-C goal of <100 mg/dL (LDL-C of <70 mg/dL) is considered a therapeutic option. Blood 02/11/2025 1:10 PM CDT 02/11/2025 1:11 PM CDT Narrative [facility] - 02/12/2025 9:45 PM CDT FASTING:NO FASTING: NO us Paulette Robledo DO LAB BLOOD ORDERABLES Final Result [facility] [address] [place] [address] * Comprehensive metabolic panel (02/11/2025 1:10 PM CDT) Pathologist [facility] Glucose 89 65 - 139 mg/dL [facility] Comment: Non-fasting reference interval BUN 12 7 - 25 mg/dL [facility] Creatinine 1.01 0.60 - 1.24 mg/dL [facility] eGFR 108 > OR = 60 mL/min/1.7 3m2 [employer] [facility] BUN/creat ratio SEE NOTE: 6 - 22 (calc) [facility] Comment: Not Reported: BUN and Creatinine are within reference range. Sodium 139 135 - 146 mmol/L [facility] Potassium, pl 4.3 3.5 - 5.3 mmol/L [facility] Chloride 105 98 - 110 mmol/L [facility] CO2 29 20 - 32 mmol/L [facility] Calcium 9.5 8.6 - 10.3 mg/dL [facility] Protein, sr 6.8 6.1 - 8.1 g/dL [facility] Albumin 4.4 3.6 - 5.1 g/dL [facility] GLOBULIN 2.4 1.9 - 3.7 g/dL (calc) [facility] Alb/glob ratio 1.8 1.0 - 2.5 (calc) [facility] Bilirubin, total 0.5 0.2 - 1.2 mg/dL [facility] Alk phos 82 36 - 130 U/L [facility] AST 22 10 - 40 U/L [facility] ALT (SGPT) 23 9 - 46 U/L [facility] Blood 02/11/2025 1:10 PM CDT 02/11/2025 1:11 PM CDT Narrative [facility] - 02/12/2025 9:45 PM CDT FASTING:NO FASTING: NO Paulette Robledo DO LAB BLOOD ORDERABLES Final Result [facility] [address] [place] [address] from Last 3 Months Insurance [facility] CLAIMS Care Teams Director Of Regulatory Affairs Relationship Specialty Start Date End Date Paulette Robledo DO [address] [place] [address] PCP - General Family Medicine 02/04/25
--- OUTSIDE RECORDS SUMMARY | 2025-03-15 06:31 | XMS_ITS | Encounter Summary ---
Author Organization [facility] Healthcare Address [address] [place] [address] Care Team Providers Care Field Artillery Radar Operator Name Role Phone Paulette Robledo DO Primary Care Provider +1- [phone] Encounter Details Date Type Department Care Team (Late st Contact Info) Description 02/19/2025 Results Follow-Up [facility] Family Medicine at [address] [address] Paulette Robledo DO [address] [place] [address] CBC with auto differential, Comprehensive metabolic panel, Hemoglobin A1c, Additional followed-up results: 8 Social History Tobacco Use Types Packs/Day Years Used Date Smoking Tobacco: Never Smokeless Tobacco: Never Alcohol Use Standard Drinks/Week Comments Not Currently [...] making you feel afraid or unsafe? 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
[2025-03-15 06:36] VITALS: BP 150/97; PULSE 84; RESP 20; TEMP 36.4; O2SAT 99
--- NOTE | 2025-03-15 07:17 | ED.EAR ---
HPI - Ear Problem General Chief complaint: Ear Stated complaint: left ear pain x 2-3 weeks Time Seen by Provider: 03/15/25 07:09 Source: patient and RN notes reviewed Mode of arrival: ambulatory Limitations: no limitations History of Present Illness HPI Narrative: This is a 20 year old male who presents for left ear pain for 2 weeks. He states that he was evaluated by his PCP and an Urgent care. He states he was told that he had fluid in his ear so he was given flonase and ibuprofen 800 mg. His pain has not improved. He reports his pain is intermittent and he describes his pain as if it will pop. He denies associated tinnitis, nausea, vomiting, vertigo, fever chills, drainage, sinus congestion or pressure. MD Complaint: ear pain Severity: moderate Relieving factors: nothing Treatment prior to arrival: oral analgesic (ibuprofen and flonase) Related Data Allergies Allergy/AdvReac Type Severity Reaction Status Date / Time No Known Allergies Allergy Verified 02/19/25 10:24 Review of Systems Constitutional: Constitutional: Denies chills and Denies fever(s) ENT: Denies vertigo Neurologic: Denies vertigo and Denies dizziness PMFSH Past Medical History Medical History (Updated 03/15/25 @ 07:23 by Lizbeth Jensen MD) Patient denies medical problems Social History Social History (Updated 03/15/25 @ 07:21 by Lizbeth Jensne MD) Smoking status: Never smoker Exam Const: General: no acute distress and alert Nutritional Appearance: well nourished Orientation/consciousness: patient oriented x3 Limitations: no limitations HENMT: Head: normal to inspection Ears: TM abnormal erythematous on the left Face and sinus: normal facial exam Mouth: Yes Normal oral and palatal mucosa present and Yes lip normal Eyes: EOM: EOMs intact bilaterally Resp: Effort & Inspection: normal respiratory effort Skin: General skin exam: normal color Neuro: General: patient oriented x3 and moves all extremities Cranial nerves: Yes Nystagmus not present Extrem: General: normal to inspection Psych: Mental Status: mental status grossly normal Affect: normal affect Attitude: cooperative Course Course Emergency Course: PAtient presented with left ear pain. On evaluation, his left TM is erythematous compared to his right. I discussed that I will treat for otitis media. PAtient has no other questions or concerns. Vital Signs Vital signs: Vital Signs Temperature 97.6 F 03/15/25 06:36 Pulse Rate 84 03/15/25 06:36 Respiratory Rate 20 03/15/25 06:36 Blood Pressure 150/97 H 03/15/25 06:36 Pulse Oximetry 99 03/15/25 06:36 Temperature 97.6 F 03/15/25 06:36 Pulse Rate 84 03/15/25 06:36 Respiratory Rate 20 03/15/25 06:36 Blood Pressure 150/97 H 03/15/25 06:36 Pulse Oximetry 99 03/15/25 06:36 Medical Decision Making Vital Signs Vital Signs: Vital Signs Temperature 97.6 F 03/15/25 06:36 Pulse Rate 84 03/15/25 06:36 Respiratory Rate 20 03/15/25 06:36 Blood Pressure 150/97 H 03/15/25 06:36 Pulse Oximetry 99 03/15/25 06:36 Temperature 97.6 F 03/15/25 06:36 Pulse Rate 84 03/15/25 06:36 Respiratory Rate 20 03/15/25 06:36 Blood Pressure 150/97 H 03/15/25 06:36 Pulse Oximetry 99 03/15/25 06:36 Discharge Plan Discharge Clinical Impression: Acute left otitis media Patient Disposition: Home Condition: Stable Instructions: Antibiotic Form, Earache (ED) Additional Instructions: Take antibiotics until completion. Follow up with your primary care provider as needed. Patient Language: Serbian Prescriptions: New amoxicillin 500 mg capsule 500 mg PO Q8H 10 Days Qty: 30 0RF No Action fluticasone propionate [Flonase Allergy Relief] 50 mcg/actuation spray,suspension 1 spray intranasal DAILY Qty: 16 0RF Rx Instructions: administer into each nostril Follow-up/Referrals: Venkat,Paulette Hwang DO [Primary Care Provider] -
--- OUTSIDE RECORDS SUMMARY | 2025-03-15 07:35 | XMS_ITS | Encounter Summary ---
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
--- OUTSIDE RECORDS SUMMARY | 2025-03-15 07:35 | XMS_ITS | Referral Summary ---
Author Organization [facility] Address [address] [place] [address] Care Team Providers Care Retail Clerk Name Role Phone Paulette Robledo DO Primary Care Provider +1- [phone] Encounters Date Type Department Care Team Description 03/05/2025 3:08 AM CDT - 03/05/2025 4:55 AM CDT Emergency [facility] Emergency Department [address] [place] [address] Sunny Girard, Acute nonintractable headache, unspecified headache type (Primary Dx) Discharge Disposition: Discharge to home or self care 02/19/2025 Results Follow-Up [facility] Family Medicine at [facility] [address] [facility] [address] [place] [address] Paulette Robledo, DO CBC with auto differential, Comprehensive metabolic panel, Hemoglobin A1c, Additional followed-up results: 8 02/19/2025 Telephone [facility] Family Medicine at [facility] [address] [address] [place] [address] Paulette Robledo, DO Medical Question/Miscellaneou s 02/18/2025 Telephone [facility] Pulmonary [place] [address] [address] Alvarez Powers MD Orders Only 02/18/2025 8:30 AM CDT Office Visit [facility] Pulmonary [place] [address] [facility] [address] [place] [address] Zoe Orozco NP ZOYA (obstructive sleep apnea) 02/17/2025 2:15 PM CDT Office Visit [facility] Family Medicine at [facility] [address] [facility] [address] [place] [address] Paulette Robledo DO Acute nonintractable headache, unspecified headache type (Primary Dx) 02/04/2025 8:00 AM CDT Office Visit [facility] Family Medicine at [facility] [address] [facility] [address] [place] [address] Paulette Robledo DO Annual physical exam (Primary [...] Allergy Reactions Criticality Noted Date Comments Tree Pollen-[place], Red Itching Low 06/11/2022 Medications ibuprofen (ADVIL,MOTRIN) [...] on file 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 SN: Report ID: [id number] Reading Location: [id number] Procedure Note Dina Heath MD - 03/05/2025 [...] Dina Heath M.D. SN: SN Report ID: [id number] Reading Location: [place] [address] Sunny Girard DO IMG CT PROCEDURES Final Res ult * Thyroid Function [place] (02/11/2025 1:10 PM CDT) Pathologist [facility] TSH 1.09 0.40 - 4.50 mIU/L [facility] Blood 02/11/2025 1:10 PM CDT 02/11/2025 1:11 PM CDT Narrative [facility] - 02/12/2025 9:45 PM CDT FASTING:NO FASTING: NO Paulette Robledo DO LAB BLOOD ORDERABLES Final Result [facility]ible [facility] [address] [place] [address] * Urinalysis reflex to microscopic and culture Urine, clean voided (02/11/2025 1:10 PM CDT) Color, ur TNP [facility] Comment: TEST NOT PERFORMED The specimen exceeds stability for the test requested. Urine, clean voided 02/11/2025 1:10 PM CDT 02/11/2025 1:11 PM CDT Narrative [facility] - 02/12/2025 9:45 PM CDT FASTING:NO FASTING: NO Paulette Robledo DO LAB MICROBIOLOGY - GENERAL ORDERABLES Final Result [facility] [address] [place] [address] * CBC with auto differential (02/11/2025 1:10 PM CDT) WBC 6.4 3.8 - 10.8 Thousand/u L [facility] RBC, POC 5.37 4.20 - 5.80 Million/uL [facility] Hgb 16.4 13.2 - 17.1 g/dL [facility] Hct 48.5 38.5 - 50.0 % [facility] MCV 90.3 80.0 - 100.0 fL [facility] MCH 30.5 27.0 - 33.0 pg [facility] MCHC 33.8 32.0 - 36.0 g/dL [facility] Comment: For adults, a slight decrease in the calculated MCHC value (in the range of 30 to 32 g/dL) is most likely not clinically significant; however, it should be interpreted with caution in correlation with other red cell parameters and the patient's clinical condition. Rdw 13.2 11.0 - 15.0 % [facility] Platelets 309 140 - 400 Thousand/u L [facility] MPV 8.7 7.5 - 12.5 fL [facility] Neutrophils, abs 3,571 1,500 - 7,800 cells/uL [facility] Lymphocytes, abs 2,138 850 - 3,900 cells/uL [facility] Monocyte abs 544 200 - 950 cells/uL [facility] Eosinophils, abs 109 15 - 500 cells/uL [facility] Basophils, abs 38 0 - 200 cells/uL [facility] Neutrophils 55.8 % [facility] Lymphocyte pct 33.4 % [facility] Monocytes 8.5 % [facility] Eosinophils 1.7 % [facility] Basophils 0.6 % [facility] Blood 02/11/2025 1:10 PM CDT 02/11/2025 1:11 PM CDT Narrative [facility] - 02/12/2025 9:45 PM CDT FASTING:NO FASTING: NO Paulette Robledo DO LAB BLOOD ORDERABLES Final Result Performing Organization Address City/[facility]/ZIP Co de Phone Number QUEST [facility] [address] [place] [address] * Hepatitis C antibody Blood (02/11/2025 1:10 PM CDT) Hep C Ab NON-REACTI VE NON-REACT KATERYNA [facility] Comment: HCV antibody was non-reactive. There is no laboratory evidence of HCV infection. In most cases, no further action is required. However, if recent HCV exposure is suspected, a test for HCV RNA (test code 08648) is suggested. For additional information please refer to http://Sendbloom.[email or web address] REIT/faq/MJY54l7 (This link is being provided for informational/ educational purposes only.) Blood 02/11/2025 1:10 PM CDT 02/11/2025 1:11 PM CDT Narrative [facility] - 02/12/2025 9:45 PM CDT FASTING:NO FASTING: NO Paulette Robledo DO LAB MICROBIOLOGY - GENERAL ORDERABLES Final Result Performing Organization Address City/[facility]/ZIP Co de Phone Number QUEST [facility] [address] [place] [address] * Hepatitis B core antibody, total Blood (02/11/2025 1:10 PM CDT) Hep B core IgG/IgM NON-REACTI VE NON-REACTI VE [facility] Comment: For additional information, please refer to http://Sendbloom.[email or web address] [employer]IT/faq/TAQ057 (This link is being provided for informational/ educational purposes only.) Blood 02/11/2025 1:10 PM CDT 02/11/2025 1:11 PM CDT Narrative [facility] - 02/12/2025 9:45 PM CDT FASTING:NO FASTING: NO us Paulette Robledo DO LAB MICROBIOLOGY - GENERAL ORDERABLES Final Result Performing Organization Address [facility]/ZIP Co de Phone Number [facility] [address] [place] [address] * Hepatitis B surface antibody (immune status) Blood (02/11/2025 1:10 PM CDT) HBsAb (immune status) NON-REACTI VE NON-REACTI VE [facility] Blood 02/11/2025 1:10 PM CDT 02/11/2025 1:11 PM CDT Narrative [facility] - 02/12/2025 9:45 PM CDT FASTING:NO FASTING: NO Paulette Robledo DO LAB MICROBIOLOGY - GENERAL ORDERABLES Final Result Performing Organization Address [facility] de Phone Number [facility] [address] [place] [address] * Hepatitis B Surface Antigen Blood (02/11/2025 1:10 PM CDT) HepBsAg NON-REACTI VE NON-REACTI VE [facility] Comment: For additional information, please refer to http://education.Devonshire REIT/faq/OYW228 (This link is being provided for informational/ educational purposes only.) Blood 02/11/2025 1:10 PM CDT 02/11/2025 1:11 PM CDT Narrative [facility] - 02/12/2025 9:45 PM CDT FASTING:NO FASTING: NO us Paulette Robledo DO LAB MICROBIOLOGY - GENERAL ORDERABLES Final Result Performing Organization Address [facility] Co de Phone Number [facility] [address] [place] [address] * Urine culture (02/11/2025 1:10 PM CDT) Urine culture [facility] Comment: CULTURE, URINE, ROUTINE Micro Number: [id number] Test Status: Final Specimen Source: Urine Specimen Quality: Adequate Result: No Growth We received a preserved urine culture transport tube with either no order indicated or a source which is inappropriate for the test requested. A urine culture was performed. If this is not what you intended to order, please contact your local client service administrator immediately so that we can adjust our billing appropriately. You may also inquire about alternative or additional testing. 02/11/2025 1:10 PM CDT 02/11/2025 1:11 PM CDT [facility] - 02/12/2025 9:45 PM CDT FASTING:NO FASTING: NO us Paulette Robledo DO LAB MICROBIOLOGY - GENERAL ORDERABLES Final Result [facility]ible [facility] [address] [place] [address] * (ABNORMAL) Hemoglobin A1c (02/11/2025 1:10 PM CDT) Hgb A1C 5.7(H) <5.7 % of total Hgb [facility] Comment: For someone without known diabetes, [...] BLOOD ORDERABLES Final Result Performing Organization Address [facility]/ZIP Co de Phone Number QUEST [facility] [address] [place] [address] * Lipid panel (02/11/2025 1:10 PM CDT) Cholesterol 141 <200 mg/dL [facility] HDL 42 > OR = 40 mg/dL [facility] Triglycerides 140 <150 mg/dL [facility] LDL 77 mg/dL (calc) [facility] Comment: Reference range: <100 Desirable range <100 mg/dL for primary prevention; <70 mg/dL for patients with CHD or diabetic patients with > or = 2 CHD risk factors. LDL-C is now calculated using the Florencia calculation, which is a validated novel method providing better accuracy than the Friedewald equation in the estimation of LDL-C. Armando CHATMAN et al. YFN. 2013;310(19): 7512-3875 (http://education.Estorian/faq/EYP722) Chol/HDL ratio 3.4 <5.0 (calc) [facility] Non-HDL, (LDL+VLDL) 99 <130 mg/dL (calc) [facility] Comment: For patients with diabetes plus 1 major ASCVD risk factor, treating to a non-HDL-C goal of <100 mg/dL (LDL-C of <70 mg/dL) is considered a therapeutic option. Blood 02/11/2025 1:10 PM CDT 02/11/2025 1:11 PM CDT Narrative [facility] - 02/12/2025 9:45 PM CDT FASTING:NO FASTING: NO Paulette Robledo DO LAB BLOOD ORDERABLES Final Result Performing Organization Address [facility] Co de Phone Number [place] [facility] [address] [place] [address] * Comprehensive metabolic panel (02/11/2025 1:10 PM CDT) Glucose 89 65 - 139 mg/dL [email or web address] Comment: Non-fasting reference interval BUN [...] LAB BLOOD ORDERABLES Final Result FR[place]LIN [facility] [address] [place] [address] from Last 3 Months Insurance [employer] [facility] CLAIMS Care Teams Retail Clerk Relationship Specialty Start Date End Date Paulette Robledo DO [address] [facility] [place] [address] PCP - General Family Medicine 02/04/25
--- OUTSIDE RECORDS SUMMARY | 2025-03-15 07:35 | XMS_ITS | Clinical Summary ---
Author Organization [facility] Address [address] [place] [address] Care Team Providers Care Architecture Intern Name Role Phone Paulette Robledo Primary Care Provider +1- [phone] Allergies Active Allergy Reactions Criticality Noted Date Comments Tree Pollen-[place], Red Itching Low 06/11/2022 Medications ibuprofen (ADVIL,MOTRIN) [...] CDT - 03/05/2025 4:55 AM CDT [facility] Emergency Department [facility] [place] [address] Sunny Girard, Acute nonintractable headache, unspecified headache type (Primary Dx) Discharge Disposition: Discharge to home or self care 02/19/2025 Results Follow-Up [facility] Family Medicine at [address] [phone] Paulette Robledo, DO CBC with auto differential, Comprehensive metabolic panel, Hemoglobin A1c, Additional followed-up results: 8 02/19/2025 Telephone [facility] Family Medicine [address] [phone] Paulette Robledo, DO Medical Question/Miscellaneou s 02/18/2025 8:30 AM CDT Office Visit [facility] Pulmonary [address] [address] Zoe Orozco NP ZOYA (obstructive sleep apnea) 02/18/[address] [address] Alvarez Powers MD Orders Only 02/17/2025 2:15 PM CDT Office Visit [facility] Family Medicine [address] [address] Paulette Robledo, DO Acute nonintractable headache, unspecified headache type (Primary Dx) 02/04/2025 8:00 AM CDT Office Visit [facility] Family Medicine at [place] [address] [facility] [address] [place] [address] Paulette Robledo DO Annual physical exam (Primary [...] '06 at OSH (Added by TW Conv) MS TONSILLECTOMY PRIMARY/SECONDARY <AGE 10 Tonsillectomy - with Adnoid revision '07 at OSH (Added by TW Conv) MS LAPAROSCOPIC APPENDECTOMY Laparoscopic Appendectomy - (Added by [...] on file 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 SN: SN Report ID: [id number] Reading Location: [id number] Procedure Note Dina Heath MD - 03/05/2025 [...] Dina Heath M.D. SN: SN Report ID: [id number] Reading Location: [place] [address] Sunny Girard DO IMG CT PROCEDURES Final Res ult * Thyroid Function [place] (02/11/2025 1:10 PM CDT) [facility] TSH 1.09 0.40 - 4.50 mIU/L [facility] Blood 02/11/2025 1:10 PM CDT 02/11/2025 1:11 PM CDT Narrative [facility] - 02/12/2025 9:45 PM CDT FASTING:NO FASTING: NO Paulette Robledo DO LAB BLOOD ORDERABLES Final Result Performing Organization Address [facility] de Phone Number QUEST [facility] [address] [place] [address] * Urinalysis reflex to microscopic and culture Urine, clean voided (02/11/2025 1:10 PM CDT) [facility] Color, ur TNP [facility] Comment: TEST NOT PERFORMED The specimen exceeds stability for the test requested. Urine, clean voided 02/11/2025 1:10 PM CDT 02/11/2025 1:11 PM CDT Narrative [facility] - 02/12/2025 9:45 PM CDT FASTING:NO FASTING: NO Paulette Robledo DO LAB MICROBIOLOGY - GENERAL ORDERABLES Final Result Performing Organization Address [facility] Co de Phone Number Colppy [facility] [address] [place] [address] * CBC with auto differential (02/11/2025 1:10 PM CDT) [facility] WBC 6.4 3.8 - 10.8 Thousand/u L [facility] RBC, POC 5.37 4.20 - 5.80 Million/uL [facility] Hgb 16.4 13.2 - 17.1 g/dL [facility] Hct 48.5 38.5 - 50.0 % [facility] MCV 90.3 80.0 - 100.0 fL [facility] MCH 30.5 27.0 - 33.0 pg [facility] MCHC 33.8 32.0 - 36.0 g/dL [facility] Comment: For adults, a slight decrease in the calculated MCHC value (in the range of 30 to 32 g/dL) is most likely not clinically significant; however, it should be interpreted with caution in correlation with other red cell parameters and the patient's clinical condition. Rdw 13.2 11.0 - 15.0 % [facility] Platelets 309 140 - 400 Thousand/u L [facility] MPV 8.7 7.5 - 12.5 fL [facility] Neutrophils, abs 3,571 1,500 - 7,800 cells/uL [facility] Lymphocytes, abs 2,138 850 - 3,900 cells/uL [facility] Monocyte abs 544 200 - 950 cells/uL [facility] Eosinophils, abs 109 15 - 500 cells/uL [facility] Basophils, abs 38 0 - 200 cells/uL [facility] Neutrophils 55.8 % [facility] Lymphocyte pct 33.4 % [facility] Monocytes 8.5 % [facility] Eosinophils 1.7 % [facility] Basophils 0.6 % [facility] Blood 02/11/2025 1:10 PM CDT 02/11/2025 1:11 PM CDT Narrative [facility] - 02/12/2025 9:45 PM CDT FASTING:NO FASTING: NO Paulette Robledo DO LAB BLOOD ORDERABLES Final Result [facility] [address] [place] [address] * Hepatitis C antibody Blood (02/11/2025 1:10 PM CDT) Hep C Ab NON-REACTI VE NON-REACT KATERYNA [facility] Comment: HCV antibody was non-reactive. There is no laboratory evidence of HCV infection. In most cases, no further action is required. However, if recent HCV exposure is suspected, a test for HCV RNA (test code 90773) is suggested. For additional information please refer to http://Threat [email or web address]/faq/AIF62a2 (This link is being provided for informational/ educational purposes only.) Blood 02/11/2025 1:10 PM CDT 02/11/2025 1:11 PM CDT Narrative [facility] - 02/12/2025 9:45 PM CDT FASTING:NO FASTING: NO Paulette Robledo LAB MICROBIOLOGY - GENERAL ORDERABLES Final Result Performing Organization Address [facility] de Phone Number [facility] [address] [place] [address] * Hepatitis B core antibody, total Blood (02/11/2025 1:10 PM CDT) Pathologist [facility] Hep B core IgG/IgM NON-REACTI VE NON-REACTI VE [facility] Comment: For additional information, please refer to http://Threat [email or web address]/faq/HHG439 (This link is being provided for informational/ educational purposes only.) Blood 02/11/2025 1:10 PM CDT 02/11/2025 1:11 PM CDT Narrative [facility] - 02/12/2025 9:45 PM CDT FASTING:NO FASTING: NO Paulette Robledo LAB MICROBIOLOGY - GENERAL ORDERABLES Final Result Performing Organization Address [facility] de Phone Number [facility] [address] [place] [address] * Hepatitis B surface antibody (immune status) Blood (02/11/2025 1:10 PM CDT) Pathologist [facility] HBsAb (immune status) NON-REACTI VE NON-REACTI VE [facility] Blood 02/11/2025 1:10 PM CDT 02/11/2025 1:11 PM CDT Narrative [facility] - 02/12/2025 9:45 PM CDT FASTING:NO FASTING: NO Paulette Iraheta Robledo DO LAB MICROBIOLOGY - GENERAL ORDERABLES Final Result Performing Organization Address [facility] de Phone Number QUEST [facility] [address] [place] [address] * Hepatitis B Surface Antigen Blood (02/11/2025 1:10 PM CDT) HepBsAg NON-REACTI VE NON-REACTI VE [facility] Comment: For additional information, please refer to http://Threat [email or web address]/faq/FWD707 (This link is being provided for informational/ educational purposes only.) Blood 02/11/2025 1:10 PM CDT 02/11/2025 1:11 PM CDT Narrative [facility]ST - 02/12/2025 9:45 PM CDT FASTING:NO FASTING: NO Paulette Iraheta Venkat DO LAB MICROBIOLOGY - GENERAL ORDERABLES Final Result Performing Organization Address [facility] Phone Number QUEST [facility] [address] [place] [address] * Urine culture (02/11/2025 1:10 PM CDT) Urine culture [facility] Comment: CULTURE, URINE, ROUTINE Micro Number: [id number] Test Status: Final Specimen Source: Urine Specimen Quality: Adequate Result: No Growth We received a preserved urine culture transport tube with either no order indicated or a source which is inappropriate for the test requested. A urine culture was performed. If this is not what you intended to order, please contact your local client services associate immediately so that we can adjust our billing appropriately. You may also inquire about alternative or additional testing. 02/11/2025 1:10 PM CDT 02/11/2025 1:11 PM CDT Narrative [facility] - 02/12/2025 9:45 PM CDT FASTING:NO FASTING: NO us Paulette Robledo DO LAB MICROBIOLOGY - GENERAL ORDERABLES Final Result Performing Organization Address [facility] de Phone Number [facility] [address] [place] [address] * (ABNORMAL) Hemoglobin A1c (02/11/2025 1:10 PM CDT) Hgb A1C 5.7(H) <5.7 % of total Hgb [facility] Comment: For someone without known [...] BLOOD ORDERABLES Final Result Performing Organization Address [facility] de Phone Number QUEST [facility] [address] [place] [address] * Lipid panel (02/11/2025 1:10 PM CDT) Cholesterol 141 <200 mg/dL [facility] HDL 42 > OR = 40 mg/dL [facility] Triglycerides 140 <150 mg/dL [facility] LDL 77 mg/dL (calc) [facility] [...] LDL-C. Armando CHATMAN et al. YFN. 2013;310(19): 7122-9210 (http://education.Cargoh.com/faq/IFD777) Chol/HDL ratio 3.4 <5.0 (calc) [facility] Non-HDL, (LDL+VLDL) 99 <130 mg/dL (calc) [facility] Comment: For patients with diabetes plus 1 major ASCVD risk factor, treating to a non-HDL-C goal of <100 mg/dL (LDL-C of <70 mg/dL) is considered a therapeutic option. Blood 02/11/2025 1:10 PM CDT 02/11/2025 1:11 PM CDT Narrative [facility] - 02/12/2025 9:45 PM CDT FASTING:NO FASTING: NO us Paulette Robledo DO LAB BLOOD ORDERABLES Final Result [place] [facility] [address] [place] [address] * Comprehensive metabolic panel (02/11/2025 1:10 PM CDT) Pathologist [facility] Glucose 89 65 - 139 mg/dL [facility] Comment: Non-fasting reference interval BUN 12 7 - 25 mg/dL [facility] Creatinine 1.01 0.60 - 1.24 mg/dL [facility] eGFR 108 > OR = 60 mL/min/1.7 3m2 ComCrowd maxim [facility] BUN/creat ratio SEE NOTE: 6 - 22 (calc) [facility] Comment: Not Reported: BUN and Creatinine are within reference range. Sodium 139 135 - 146 mmol/L [facility] Potassium, pl 4.3 3.5 - 5.3 mmol/L [facility] Chloride 105 98 - 110 mmol/L [facility] OnlineS [facility] CO2 29 20 - 32 mmol/L [facility] Calcium 9.5 8.6 - 10.3 [...] DO LAB BLOOD ORDERABLES Final Result [facility] [address] [place] [address] from Last 3 Months Insurance [facility] Care Teams Architecture Intern Relationship Specialty Start Date End Date Paulette Robledo DO [address] [facility] [place] [address] PCP - General Family Medicine 02/04/25
[2025-03-15 07:45] VITALS: BP 158/101; PULSE 67; RESP 16; O2SAT 99
== END 2025-03-15 07:46 | disposition home or self-care (01) ==
LOC: ANHED 07:27
PROVIDERS: Emergency Provider General Practice; PCP Family Medicine
DX: H66.92 Otitis media, unspecified, left ear (principal)
CPT/HCPCS: 99283

== ENCOUNTER 2025-03-29 13:44 | Emergency (ER) | payer OTHER, SELFPAY ==
--- NOTE | 2025-03-29 13:46 | ED_ITS ---
HPI - Ear Problem General Chief complaint: Ear Stated complaint: left ear pain Time Seen by Provider: 03/29/25 13:45 Source: patient Mode of arrival: ambulatory Limitations: no limitations History of Present Illness HPI Narrative: Patient is a 20-year-old male who presents with left ear pain for over a month. Patient was seen here 02/19 and then is in the ER 03/15. Patient just finished course of amoxicillin with no relief. Patient has been using Flonase with no relief. Patient has PCP appointment in 2 hours. Denies any congestion, cough, fever, chills, nausea, vomiting, diarrhea. MD Complaint: ear pain Related Data Allergies Allergy/AdvReac Type Severity Reaction Status Date / Time No Known Allergies Allergy Verified 03/29/25 14:03 Review of Systems Review of Systems: All systems reviewed & are unremarkable except as noted in HPI and below Constitutional: Constitutional: Denies body ache(s), Denies chills, Denies fever(s), Denies headache(s) and Denies malaise Eyes: Eyes: Denies blurry vision, Denies eye discharge and Denies irritation ENT: Reports otalgia, Denies headache(s), Denies nasal congestion, Denies nasal discharge and Denies sore throat Cardiovascular: Cardiovascular: Denies chest pain, Denies edema, Denies palpitations and Denies dyspnea on exertion Respiratory: Respiratory: Denies cough and Denies dyspnea on exertion Gastrointestinal: Gastrointestinal: Denies abdominal pain, Denies diarrhea, Denies nausea and Denies vomiting Musculoskeletal: Musculoskeletal: Denies back pain, Denies arthralgias and Denies muscle weakness Integumentary/Breasts: Skin/Breast: Denies pruritus and Denies rash Neurologic: Denies headache(s) Psychiatric: Psychiatric: Reports no additional psychiatric complaints Endocrine: Endocrine: Denies palpitations PMFSH Past Medical History Medical History Patient denies medical problems Social History Social History Smoking status: Never smoker Comments At time of signature, agree with nursing past medical, surgical, social and family history. There is no relevant family history pertinent to the presenting complaint? Exam Const: General: cooperative, healthy appearing, no acute distress and well nourished Nutritional Appearance: well nourished Orientat ion/consciousness: patient oriented x3 Limitations: no limitations HENMT: Head: normal to inspection, normocephalic and atraumatic Ears: hearing grossly normal bilaterally, TM normal on the right, EAC's normal, no periauricular adenopathy and TM abnormal bulging on the left and erythematous on the left Face/Nose/Sinus: Normal external nose present, Normal nares present, Normal nasal mucous membranes and turbinates present, No nasal discharge present , normal facial exam and sinuses nontender Face and sinus: normal facial exam and sinuses nontender Mouth: Yes Normal oral and palatal mucosa present, Yes lip normal, Yes tongue normal and Yes moist mucous membranes Throat: posterior oropharynx normal, tonsils normal and uvula midline Eyes: General: appearance normal, both eyes and all related structures Alignment and Position: alignment normal and position normal Eyelids: eyelids normal Pupils: Equal, round and reactive pupils present EOM: EOMs intact bilaterally Neck: Neck: normal visual inspection, full ROM, no lymphadenopathy and supple Chest: Chest palpation & inspection: normal inspection of the chest Resp: Effort & Inspection: normal respiratory effort and able to speak in complete sentences Auscultation: clear to auscultation bilaterally, no crackles, no rales, no rhonchi and no wheezes Cardio: Rate: regular rate Rhythm: regular rhythm Heart sounds: S1 normal heart sound present and S2 normal heart sound present Skin: General skin exam: normal color and no rashes or lesions noted Neuro: General: patient oriented x3 and moves all extremities Cranial nerves: Yes Equal, round and reactive pupils present Cognition (Neuro): normal cognition Speech: normal speech Gait exam (Neuro): Normal gait present Extrem: General: normal to inspection and full ROM Psych: Appearance: grossly normal and well kempt Mental Status: mental status grossly normal Speech and movement: Normal speech and movement present Course Course Emergency Course: Patient is aware of diagnosis, understands and agrees to treatment plan.? Anticipatory guidance given.? Patient agrees to follow-up as directed and is aware of reasons to seek care at the emergency department.? Portions of this record may have been created with voice recognition software? Level of Care: Express Care Visit Vital Signs Vital signs: Reviewed Medical Decision Making MDM Narrative Medical decision making narrative: Pt well hydrated appearing, in no respiratory distress, hemodynamically stable. Recommend supportive care. The patient is stable at time of discharge the clinical impression was discussed and the patient was given the opportunity to ask questions, which were addressed as completely as possible given the information available at present. Anticipatory guidance and return to care precautions were discussed and the importance of primary care follow-up was stressed and encouraged. The patient voiced understanding of the plan, indications to return, and the need for follow-up. Exam findings show no acute concerns or changes Patient is appropriate for outpatient treatment and follow-up. Differential diagnosis considered: Stack virus, strep pharyngitis, allergic rhinitis, upper respiratory tract infection, sinusitis, rhinosinusitis, nasopharyngitis. viral pharyngitis, otitis media, otitis externa, otitis effusion, foreign body, cerumen impaction, viral syndrome, and influenza.? Medical Records Medical records reviewed: Yes I reviewed the external patient's medical records. Discharge Plan Discharge Clinical Impression: Otitis media Qualifiers: Otitis media type: suppurative Chronicity: acute Laterality: left Recurrence: recurrent Spontaneous tympanic membrane rupture: without spontaneous rupture Qualified Code(s): H66.005 - Acute suppurative otitis media without spontaneous rupture of ear drum, recurrent, left ear Patient Disposition: Home Condition: Stable Instructions: Ear Infection (GEN) Additional Instructions: Take antibiotics as directed. Recommend antihistamine such as Benadryl at night time and Zyrtec or Monse during the day until symptoms improve Flonase nasal spray, 1 spray in each nostril once daily until symptoms improve Also, recommend symptomatic treatment includes: rest, fluids, and increase humidity of the air at home. Recommend Acetaminophen as directed on the bottle to reduce fever, pain Please schedule a follow-up visit with your personal physician for further evaluation and treatment within 3-5days. If your symptoms persist, change or worsen significantly before you can contact your personal physician then please, without delay, go to the emergency department for further evaluation. Your blood pressure was elevated above 120/80 today at Urgent Care. This puts you above the threshold for follow up visit with a primary care provider. High blood pressure does not usually cause any symptoms, however it may lead to kidney failure, stroke, heart disease just to name a few if untreated . Many people are anxious when seeing a provider or nurse. As a result, you are not diagnosed with hypertension at this time unless your blood pressure is persistently high at two office visits at least one week apart. Some things that can help lower blood pressure are lifestyle modifications, such as light exercise, decreased salt in diet, and weight loss. It is important to follow up with a PCP about this within 1 week. Patient Language: Vietnamese Prescriptions: New cefdinir 300 mg capsule 300 mg PO Q12H 7 Days Qty: 14 0RF Follow-up/Referrals: Jairo Ricci MD [Physician] - 3 Days (Recurrent ear infection) Venkat,Paulette Hwang DO [Primary Care Provider] - 3 Days Stand Alone Forms: Work/School Release IP Time of Disposition: 14:34
[2025-03-29 13:52] VITALS: BP 147/97; PULSE 86; RESP 16; TEMP 36.7; O2SAT 99
== END 2025-03-29 14:40 | disposition home or self-care (01) ==
PROVIDERS: Emergency Provider Nurse Practitioner Family; PCP Family Medicine
DX: H66.005 Acute suppurative otitis media without spontaneous rupture of ear drum, recurrent, left ear (principal)
CPT/HCPCS: 99213; G0463

== ENCOUNTER 2025-10-03 15:43 | Emergency (ER) | payer OTHER, SELFPAY ==
[2025-10-03 15:56] VITALS: BP 137/103; PULSE 99; RESP 18; TEMP 36.6; O2SAT 99
[2025-10-03 16:19] LABS: EDCOVIDSCREEN Negative (Negative); EDINFLUASCREEN Negative (Negative); EDINFLUBSCREEN Negative (Negative)
--- NOTE | 2025-10-03 16:42 | ED_ITS ---
HPI - URI/Sore Throat General Chief Complaint: Upper Respiratory Infection Stated Complaint: Flu Symptoms Time Seen by Provider: 10/03/25 15:45 Source: patient Mode of arrival: ambulatory Limitations: no limitations History of Present Illness HPI Narrative: patient took 20-year-old male who presents with congestion, sore throat, hoarseness, headache, chills, cough since yesterday. Patient tested positive for influenza a 3 days ago. Denies any fever, nausea vomiting, diarrhea. Related Data Home Medications ?Medication ?Instructions ?Recorded ?Confirmed ?Last Taken ?Type No Home Medications 10/03/25 10/03/25 U nknown History Allergies Allergy/AdvReac Type Severity Reaction Status Date / Time No Known Allergies Allergy Verified 10/03/25 16:43 Review of Systems Review of Systems: All systems reviewed & are unremarkable except as noted in HPI and below Constitutional: Constitutional: Reports chills, Denies fatigue, Denies fever(s), Reports headache(s), Denies malaise and Denies weakness Eyes: Eyes: Denies blurry vision, Denies itchy eyes and Denies loss of vision ENT: Denies otalgia, Reports headache(s), Reports hoarseness, Reports nasal congestion, Reports post nasal drip, Denies sinus pain and Reports sore throat Cardiovascular: Cardiovascular: Denies chest pain, Denies irregular heart rhythm and Denies dyspnea Respiratory: Respiratory: Reports cough and Denies dyspnea Gastrointestinal: Gastrointestinal: Denies abdominal pain, Denies diarrhea, Denies nausea and Denies vomiting Musculoskeletal: Musculoskeletal: Denies back pain, Denies myalgias and Denies arthralgias Integumentary/Breasts: Skin/Breast: Denies pruritus and Denies rash Neurologic: Reports headache(s), Denies loss of vision and Denies weakness Psychiatric: Psychiatric: Reports no additional psychiatric complaints Endocrine: Endocrine: Denies fatigue Allergic/Immunologic: Allergic/Immunologic: Denies itchy eyes PMFSH Past Medical History Medical History Patient denies medical problems Social History Social History Smoking status: Never smoker Comments At time of signature, agree with nursing past medical, surgical, social and family history. There is no relevant family history pertinent to the presenting complaint. Exam Const: General: cooperative, healthy appearing, comfortable, no acute distress and well nourished Nutritional Appearance: well nourished Orientation/consciousness: patient oriented x3 Limitations: no limitations HENMT: Head: normal to inspection, normocephalic and atraumatic Ears: hearing grossly normal bilaterally, external ears normal, TM's normal bilaterally, EAC's normal and no periauricular adenopathy Face/Nose/Sinus: Normal external nose present, Abnormal mucous membranes and turbinates present erythematous bilateral and diffuse, normal facial exam, sinuses nontender and face symmetric Face and sinus: normal facial exam, sinuses nontender and face symmetric Mouth: Yes Normal oral and palatal mucosa present, Yes lip normal, Yes tongue normal, Yes Normal salivary glands and ducts present, Yes oropharynx normal and Yes moist mucous membranes Teeth and gingiva: dentition normal Throat: posterior oropharynx normal, tonsils normal and uvula midline Eyes: General: appearance normal, both eyes and all related structures Alignment and Position: alignment normal and position normal Periorbital: periorbital findings normal Eyelids: eyelids normal Pupils: Equal, round and reactive pupils present Neck: Neck: normal visual inspection, full ROM, no lymphadenopathy and supple Chest: Chest palpation & inspection: normal inspection of the chest and normal palpation of entire chest wall Resp: Effort & Inspection: normal respiratory effort and able to speak in complete sentences Auscultation: clear to auscultation bilaterally, no crackles, no rales, no rhonchi and no wheezes Cardio: Rate: regular rate Rhythm: regular rhythm Heart sounds: S1 normal heart sound present and S2 normal heart sound present GI: Inspection: normal to inspection Skin: General skin exam: normal color and no rashes or lesions noted Neuro: General: patient oriented x3 and moves all extremities Cranial nerves: Yes Equal, round and reactive pupils present Speech: normal speech Gait exam (Neuro): Normal gait present Extrem: General: normal to inspection, full ROM and no edema Psych: Appearance: grossly normal and well kempt Mental Status: mental status grossly normal Speech and movement: Normal speech and movement present Affect: normal affect Attitude: cooperative Thought process: Normal thought process present Course Course Emergency Course: Patient is aware of diagnosis, understands and agrees to treatment plan. Anticipatory guidance given. Patient agrees to follow-up as directed and is aware of reasons to seek care at the emergency department. Portions of this record may have been created with voice recognition software Level of Care: Express Care Visit Vital Signs Vital signs: Vital Signs Temperature 36.6 C 10/03/25 15:56 Pulse Rate 99 10/03/25 15:56 Respiratory Rate 18 10/03/25 15:56 Blood Pressure 137/103 H 10/03/25 15:56 Pulse Oximetry 99 10/03/25 15:56 Oxygen Delivery Room Air 10/03/25 15:56 Temperature 36.6 C 10/03/25 15:56 Pulse Rate 99 10/03/25 15:56 Respiratory Rate 18 10/03/25 15:56 Blood Pressure 117/89 10/03/25 16:55 Pulse Oximetry 99 10/03/25 15:56 Oxygen Delivery Room Air 10/03/25 15:56 [facility] Narrative Medical decision making narrative: Rapid COVID, flu were negative. Symptoms likely viral in etiology. Pt well hydrated appearing, in no respiratory distress, hemodynamically stable. Recommend supportive care. The patient is stable at time of discharge the clinical impression was discussed and the patient was given the opportunity to ask questions, which were addressed as completely as possible given the information available at present. Anticipatory guidance and return to care precautions were discussed and the importance of primary care follow-up was stressed and encouraged. The patient voiced understanding of the plan, indications to return, and the need for follow-up. Exam findings show no acute concerns or changes Patient is appropriate for outpatient treatment and follow-up. Differential Diagnosis Differential Diagnosis: Differential diagnosis considered: Stack virus, strep pharyngitis, allergic rhinitis, upper respiratory tract infection, sinusitis, rhinosinusitis, nasopharyngitis. viral pharyngitis, otitis media, otitis externa, otitis effusion, foreign body, cerumen impaction, viral syndrome, and influenza. Medical Records I have reviewed the following patient records and this information was taken into consideration when formulating the assessment and plan.: previous clinic visits Lab Data [facility] Lab Attestation statement: I personally reviewed the patient's lab results. Labs: Lab Results 10/03/25 Range/Units 15:54 POC Influenza A Ag Negative (Negative) POC Influenza B Ag Negative (Negative) POC SARS CoV-2 Ag Negative (Negative) Discharge Plan Discharge Clinical Impression: Upper respiratory infection Qualifiers: URI type: unspecified viral URI Qualified Code(s): J06.9 - Acute upper respiratory infection, unspecified Patient Disposition: Home Condition: Stable Instructions: Upper Respiratory Infection (ED) Additional Instructions: Your Covid and flu are both negative Your symptoms are likely due to a viral illness, which is not treated with antibiotics. Viral symptoms can be present for up to a few weeks. -For pain/fever, you may take: Tylenol 650-1000mg by mouth every 4-6 hours. Do not exceed 4000mg in 24 hours. Advil (Ibuprofen) 600 mg by mouth every 6 hours. Do not exceed 2400mg in 24 hours. 8 AM: Tylenol 11 AM: Ibuprofen 2 PM: Tylenol 5 PM: Ibuprofen 8 PM: Tylenol 11 PM: Ibuprofen 2 AM: Tylenol 5 AM: Ibuprofen -Antihistamine medication such as Benadryl/Zyrtec at night and Claritin/Monse during the day can help improve symptoms. -Use Flonase twice a day for 5 days then daily to help reduce the inflammation and dry up your sinuses. -You can also use Sudafed behind the pharmacy counter(12 or 24 hour). Be sure to drink plenty of water with these medications at least 8 ounces with every dose and it is important to drink 8 to 10 glasses of water per day. Water is a natural decongestant -Eat and drink things that are easy to swallow, like tea or soup, or popsicles. -Oral rinses such as: Salt water gargles and/or may use topical anesthetic (eg. Chloraseptic spray) or lozenges to relieve dryness or throat pain). -Frequent hand washing or hand [facility] office supervisor is one of the best ways to prevent spread of infection. -Using a vaporizer or humidifier at night will also help thin secretions and help with coughing up phlegm. Call your Primary Care Doctor and make a follow-up appointment in 3 days. If your cough worsens, you develop a fever greater than 103, you develop shaking chills, a fast heartbeat, trouble breathing and/or feel you are are breathing much faster than usual, call your Primary Care Doctor or go to the ER. Patient Language: Bulgarian Prescriptions: No Action No Home Medications Follow-up/Referrals: Venkat,Paulette Hwang DO [Primary Care Provider, Unknown] - 3 Days Stand Alone Forms: Work/School Release IP Time of Disposition: 16:51
[2025-10-03 16:55] VITALS: BP 117/89
== END 2025-10-03 16:59 | disposition home or self-care (01) ==
PROVIDERS: Emergency Provider Nurse Practitioner Family; PCP Family Medicine
DX: J06.9 Acute upper respiratory infection, unspecified (principal); Z20.822 Contact with and (suspected) exposure to COVID-19
CPT/HCPCS: 87426; 87804; 99212; G0463